=== PATIENT | male | born 1975 | race Caucasian/White ===

== ENCOUNTER 2024-03-02 09:16 | Inpatient (IN) | payer OTHER, SELFPAY ==
[2024-03-02] VITALS (13 sets, daily range): BP systolic 116–166; BP diastolic 80–99; BMI 29.3; BMI 28.9
--- NOTE | 2024-03-02 04:40 | EDRN ---
Pt had flu about 3 weeks ago and since has had a cough. Pt says last 3 days his cough intensified and he is now having chest pressure with coughing. Pt has been taking mucinex for the past 2-3 days. Pt notice a white coating on his tongue and
went to an urgent care 4 days ago and was told he probably has thrush and given a medicine to squirt on his tongue. Pt went to on Saturday, says he was alright during the event but when he got to his room the coughing increased. Pt feels he cannot
take a deep breath. At midnight, pt had a violent coughing fit that caused him to bring up mucus. Pt denies abd pain, nausea, urinary symptoms, fever, weakness.
[2024-03-02] MEDS: DECADRON 10 MG PO (05:15)
[2024-03-02] MEDS: DUONEB 3 ML INH ×2 (05:15→07:44)
--- NOTE | 2024-03-02 05:21 | ED.GENMED ---
History of Present Illness
<JESU Resendiz - Last Filed: 03/02/24 06:30>
General
Chief Complaint: Cough
Source: patient
Exam Limitations: none
Time Seen by Provider: 03/02/24 05:25
Nursing documentation reviewed up to this point in time: agreed with
Travel History
Have you had any contact with someone who has COVID-19?: No
Do you have any symptoms of coronavirus? Fever > 100 degrees, chills, cough, shortness of breath, sore throat, loss of taste or smell, muscle aches, or headache?: No
History of Present Illness
History of Present Illness:
patient is a 48 y/o male with no PMH presenting with a cough x 3-4 weeks. Patient states cough started when he was diagnosed with the flu. Patient was started on Tamiflu, no antibiotics were given. Patient states he has had the cough ever since but
noticed it has worsened in the last 24 hours. Patient states he took Mucinex at home with no relief. Patient admits to chills. Patient admits that his cough induced one episode of nonbilious vomit. Patient admits to SOB since he woke up this
morning. Patient admits to CP that he describes as a pressure. Patient admits to palpitations. Patient lives at home and denies any recent antibiotic use.
Review of Systems
<JESU Resendiz - Last Filed: 03/02/24 06:30>
Review of Systems
Constitutional: Reports chills
EENT: Reports no symptoms
Respiratory: Reports cough and trouble breathing
Cardiac: Reports chest pain and palpitations
ABD/GI: Reports vomiting
: Reports no symptoms
Musculoskeletal: Reports no symptoms
Phy Exam
<JESU Resendiz - Last Filed: 03/02/24 06:30>
General Physical Exam
General Presentation: well appearing and no apparent distress
General Skin: warm and dry
General Habitus: normal
General Mental: alert
General Hydration: appears well hydrated
ENT Exam
ENT Exam: EOMI, pharynx normal, neck supple and normocephalic
Eye Exam
Eye Exam: PERRL, cornea clear and conjunctiva normal
Cardiovascular Exam
Cardiovascular Exam: regular rate/rhythm, no edema, no murmur and normal peripheral pulses
Pulmonary Exam
Pulmonary Exam: other (rhonchi, and coughing noted on exam )
Gastrointestinal Exam
Gastrointestinal Exam: normal bowel sounds, non tender, soft, no organomegaly, no pulsatile mass and non distended
Neurological Exam
Neurological Exam: alert, oriented x3, no motor deficits and speech normal
Musculoskeletal Exam
Musculoskeletal Exam: full ROM and no edema
Skin Exam
Skin Exam: normal color, warm/dry, no rash and no petechia
Psychiatric Exam
Psychiatric Exam: normal mood/affect
Course
<JESU Resendiz - Last Filed: 03/02/24 06:30>
Orders/Labs/Results
Orders:
Orders
03/02/24 04:35
Chest [CR Chest - 2 Views ] Urgent
Comment:
Reason For Exam: hacking cough, sob, chest pressure
03/02/24 05:11
Dexamethasone Pf [Decadron] 10 mg PO NOW STA
Ipratropium/Albuterol Sulfate [Duoneb] 3 ml INH R NOW ONE
03/02/24 05:40
CT Chest Pe Study Urgent
Comment:
Reason For Exam: dyspnea, tachycardia
03/02/24 05:42
Complete Blood Count/With Diff Urgent
Comprehensive Metabolic Panel Urgent
PTT Urgent
Prothrombin Time Urgent
Troponin I Urgent
03/02/24 07:35
Ipratropium/Albuterol Sulfate [Duoneb] 3 ml INH R NOW ONE
03/02/24 07:38
Azithromycin 500 mg/250 ml [Zithromax Infusion] 500 mg in 250 ml IV NOW
CefTRIAXone [Rocephin] 1,000 mg IV NOW STA
Abnormal Lab Results
03/02/24
05:42
WBC 14.6 H 10^3/uL
(4.8-10.8)
RBC 4.49 L 10^6/uL
(4.70-6.10)
Hgb 12.9 L g/dL
(13.0-18.0)
Hct 37.6 L %
(39.0-52.0)
Abs Immat Gran (auto) 0.1 H 10^3/uL
(0-0.05)
Absolute Neuts (auto) 12.0 H 10^3/uL
(1.4-6.5)
Absolute Monos (auto) 1.1 H 10^3/uL
(0.1-0.6)
Neutrophils % 82.5 H %
(42.2-75.2)
Lymphocytes % 8.7 L %
(20.5-51.1)
Glucose 116 H mg/dl
(70-99)
03/02/24 05:42
03/02/24 05:42
Vital Signs
Initial and Last Documented VS:
Initial Vital Signs
Pulse Resp BP Pulse Ox
124 28 166/98 93
03/02/24 03:52 03/02/24 03:52 03/02/24 03:52 03/02/24 03:52
Last Documented Vital Signs
Temp Pulse Resp BP Pulse Ox
98.9 F 119 23 135/86 93
03/02/24 04:30 03/02/24 07:15 03/02/24 07:15 03/02/24 07:00 03/02/24 07:15
<Onel Canales DO - Last Filed: 03/02/24 07:40>
Orders/Labs/Results
Orders:
Orders
03/02/24 04:35
Chest [CR Chest - 2 Views ] Urgent
Comment:
Reason For Exam: hacking cough, sob, chest pressure
03/02/24 05:11
Dexamethasone Pf [Decadron] 10 mg PO NOW STA
Ipratropium/Albuterol Sulfate [Duoneb] 3 ml INH R NOW ONE
03/02/24 05:40
CT Chest Pe Study Urgent
Comment:
Reason For Exam: dyspnea, tachycardia
03/02/24 05:42
Complete Blood Count/With Diff Urgent
Comprehensive Metabolic Panel Urgent
PTT Urgent
Prothrombin Time Urgent
Troponin I Urgent
03/02/24 07:35
Ipratropium/Albuterol Sulfate [Duoneb] 3 ml INH R NOW ONE
03/02/24 07:38
Azithromycin 500 mg/250 ml [Zithromax Infusion] 500 mg in 250 ml IV NOW
CefTRIAXone [Rocephin] 1,000 mg IV NOW STA
Abnormal Lab Results
03/02/24
05:42
WBC 14.6 H 10^3/uL
(4.8-10.8)
RBC 4.49 L 10^6/uL
(4.70-6.10)
Hgb 12.9 L g/dL
(13.0-18.0)
Hct 37.6 L %
(39.0-52.0)
Abs Immat Gran (auto) 0.1 H 10^3/uL
(0-0.05)
Absolute Neuts (auto) 12.0 H 10^3/uL
(1.4-6.5)
Absolute Monos (auto) 1.1 H 10^3/uL
(0.1-0.6)
Neutrophils % 82.5 H %
(42.2-75.2)
Lymphocytes % 8.7 L %
(20.5-51.1)
Glucose 116 H mg/dl
(70-99)
03/02/24 05:42
03/02/24 05:42
Vital Signs
Initial and Last Documented VS:
Initial Vital Signs
Pulse Resp BP Pulse Ox
124 28 166/98 93
03/02/24 03:52 03/02/24 03:52 03/02/24 03:52 03/02/24 03:52
Last Documented Vital Signs
Temp Pulse Resp BP Pulse Ox
98.9 F 119 23 135/86 93
03/02/24 04:30 03/02/24 07:15 03/02/24 07:15 03/02/24 07:00 03/02/24 07:15
<JESU Resendiz - Last Filed: 03/02/24 06:30>
MDM/Problems Addressed
Differential Diagnosis Includes:
PNA
bronchitis
MDM/Problems Addressed:
cough
<JESU Resendiz - Last Filed: 03/02/24 06:30>
*Critical Care Note
Total Time (30-74mins, 75-104mins- exclusive of procedures): Not Applicable
ED Attending Note
<JESU Resendiz - Last Filed: 03/02/24 06:30>
-
Portions of this chart may have been created with voice recognition software.� Occasional wrong word or��sound alike� substitutions may have occurred due to the inherent limitations of voice recognition software.
<Onel Canales DO - Last Filed: 03/02/24 07:40>
ED Attending Note
Patient seen and examined by attending physician: Yes
I performed the substantive portion of visit, reviewed & personally made and approve the management plan that is documented in note by myself or KARINA.: Yes
ED Attending Note:
48-year-old male with a cough for 3 to 4 weeks. He came in tonight because he states the cough worsened in the last 24 hours. He was on Tamiflu after being diagnosed with influenza. He has taken Mucinex with minimal to no relief. He has had
chills and nonbilious vomiting. He awakened with shortness of breath and palpitations. Denies any other symptoms. Patient was seen in conjunction with the PA student. I have reviewed and agree with the history and treatment plan presented. On
my independent physical exam, patient is awake, alert, and oriented x3, nonproductive cough. Wheezing in all lung gonzalez.
14,000 white count.
Discharge Plan
Departure
Patient Disposition: Admit
Date of Disposition: 03/02/24
Time of Disposition: 07:39
Admit to: Telemetry
Presentation/result/management discussed w/ accepting MD/DO: Hospitalist
Condition: Fair
Discharge Problem:
Dyspnea, Pneumonia
Prescriptions:
No Action
Unobtainable
0
Referrals:
Heather Escobar DO [Family Provider] -
Interventions
Interventions:
*Risk Screen - Suicide Last Done: 03/02/24 03:52
*General Assessment Last Done: 03/02/24 04:36
*Neglect/Abuse Screening Last Done: 03/02/24 03:52
ED- Fall Risk Assessment Last Done: 03/02/24 05:49
*ED COVID-19 Vaccine History Last Done: 03/02/24 04:36
ED- Cardiac Assessment Last Done: 03/02/24 04:36
ED- Pulmonary Assessment Last Done: 03/02/24 04:36
Discharge Date and Time
Print Language: CYPRIOT
[2024-03-02 05:52] LABS: % Basophils 0.5 % (0-2); % Eosinophils 0.5 % (0-6); % Immature Granulocytes 0.5 % (0-0.5); % Lymphocytes 8.7 % (20.5-51.1); % Monocytes 7.3 % (1.7-9.3); % Neutrophils 82.5 % (42.2-75.2); Absolute Basophils 0.1 10^3/uL (0-0.2); Absolute Eosinophils 0.1 10^3/uL (0-0.7); Absolute Immature Granulocytes 0.1 10^3/uL (0-0.05); Absolute Lymphocytes 1.3 10^3/uL (1.2-3.4); Absolute Monocytes 1.1 10^3/uL (0.1-0.6); Hematocrit 37.6 % (39.0-52.0); Hemoglobin 12.9 g/dL (13.0-18.0); Mean Corp Hgb Conc. 34.3 g/dL (33.0-37.0); Mean Corpuscular Hgb 28.7 pg (27.0-31.0); Mean Corpuscular Volume 83.7 fL (80.0-94.0); Mean Platelet Volume 9.6 fL (7.4-10.4); Nucleated Red Blood Cells % 0 % (-); Platelet Count 269 10^3/uL (130-400); Red Blood Cell Count 4.49 10^6/uL (4.70-6.10); Red Cell Dist. Width 13.9 % (11.5-14.5); White Blood Cell Count 14.6 10^3/uL (4.8-10.8)
[2024-03-02 06:03] LABS: APTT 26.8 Sec (23.4-35.0); INR 1.01; PT 13.1 Sec (11.4-14.6)
[2024-03-02 06:09] LABS: ALT (SGPT) 28 U/L (0-50); AST (SGOT) 25 U/L (17-59); Albumin 4.1 g/dl (3.5-5.0); Alkaline Phosphatase 105 U/L (38-126); Blood Urea Nitrogen 16 mg/dl (9-20); Calcium 9.2 mg/dl (8.4-10.2); Carbon Dioxide 27 mmol/L (22-30); Chloride 104 mmol/L (98-107); Estimated Creatinine Clearance 95 ml/min; Glucose 116 mg/dl (70-99); Potassium 3.7 mmol/L (3.5-5.1); Sodium 137 mmol/L (135-145); Total Bilirubin 0.5 mg/dl (0.2-1.3); Total Protein 6.8 g/dl (6.3-8.2); eGFR > 60.00
[2024-03-02 06:16] LABS: Troponin I < 0.012 ng/ml
[2024-03-02] MEDS: ROCEPHIN 1000 MG IV (07:44)
[2024-03-02] MEDS: ZITHROMAX INFUSION 250 IV (07:44)
[2024-03-02 08:23] LABS: NT-proBNP 63.8 pg/ml
--- NOTE | 2024-03-02 09:05 | HPS.HSE ---
Family Physician
-
Family Physician: Heather Escobar
Chief Complaint
-
Shortness of breath and cough
History of Present Illness
Patient 48 years old male with no significant past medical history came into hospital with cough and shortness of breath. Patient has been having cough for over 4 weeks and he was recently diagnosed with influenza and finished a course of Tamiflu.
Patient has been persistently having cough which has been worsening with yellow sputum production; patient describes thick sputum, associated with chills. Denies any fevers. He does have associated shortness of breath. He denies any chest pain.
He also has been having nausea and vomiting. No diarrhea. Sick contact his son and also his ex-, he also was at a wedding this weekend. He denies dysuria urgency or frequency or abdominal pain. In the ED, he was noted to be tachycardic
tachypneic with a leukocytosis of 14.6. He had a chest x-ray that shows bilateral opacities in the bases and a CT scan of the chest that shows mild cardiomegaly, mild interstitial alveolar cardiogenic pulmonary edema, multifocal subpleural airspace
consolidation to the basilar segments of both lower lobes and it was reported as either pulmonary edema, subsegmental atelectasis, mild pneumonia, or mild inflammatory pneumonitis. He also had some mild bilateral hilar lymphadenopathy which also
could represent cardiogenic pulmonary edema, inflammatory disease such as sarcoidosis. Troponin normal less than 0.012, proBNP 63.8. He was referred to hospitalist for further evaluation.
Medical History
Past Medical History
Past Medical History: Reports Other (Depression anxiety, recent influenza, seasonal allergies.)
Past Surgical History: Reports None
Social History
Tobacco: Non-smoker
Alcohol: Occasional
Drug: Marijuana
Family History
Family History: Not pertinent
Allergies / Home Medications
Allergies reflects when Allergies were last updated in [facility].
Home Medications with original date entered in [facility]
Allergy/Medication List:
Allergies
Allergy/AdvReac Type Severity Reaction Status Date / Time
cashew nut Allergy Swelling Verified 03/02/24 03:56
pistachio nut Allergy Swelling Verified 03/02/24 03:56
shellfish derived Allergy Nausea / Verified 03/02/24 03:56
Vomiting
Home Medications
acetaminophen 325 mg tablet (Tylenol) 650 mg PO Q4HPRN PRN mild pain 03/02/24
bupropion HCl 150 mg 24 hr tablet, extended release (Wellbutrin XL) 150 mg PO DAILY 03/02/24
levocetirizine 5 mg tablet (Xyzal) 5 mg PO DAILY 03/02/24
nystatin 100,000 unit/mL oral suspension 5 ml PO QID 03/02/24
Review of Systems
-
A 12 point ROS was completed and negative except as noted: Yes
Physical Exam
Vital Signs
Vital Signs
Temp Pulse Resp BP Pulse Ox
98.9 F 120 19 134/92 95
03/02/24 04:30 03/02/24 08:15 03/02/24 08:15 03/02/24 08:06 03/02/24 08:15
Physical exam:
General: Acutely ill. Mild toxic appearance
HEENT: Normocephalic, Atraumatic and Moist Mucous Membranes
Respiratory: Coarse scattered rhonchi; Negative Wheezes, Rales
Cardiac: Regular Rhythm, tachycardic, and S1/S2
GI: Soft, Nontender and Nondistended
Musculoskeletal: No Clubbing, No Cyanosis and No Edema
Neuro: Awake, Alert and Oriented
Psych: Calm
Physical Exam
General: Other
Laboratory Results
-
03/02/24 05:42
03/02/24 05:42
Laboratory Results
PT 13.1 Sec (11.4-14.6) 03/02/24 05:42
INR 1.01 03/02/24 05:42
APTT 26.8 Sec (23.4-35.0) 03/02/24 05:42
Total Bilirubin 0.5 mg/dl (0.2-1.3) 03/02/24 05:42
AST 25 U/L (17-59) 03/02/24 05:42
ALT 28 U/L (0-50) 03/02/24 05:42
Alkaline Phosphatase 105 U/L (38-126) 03/02/24 05:42
Troponin I < 0.012 ng/ml 03/02/24 05:42
Impression/Plan
-
IMPRESSION:
Patient 48 years old male with no significant past medical history came to the hospital cough shortness of breath likely pneumonia. Cannot rule out other inflammatory causes, also less likely but still possible heart failure. Given his acute
presentation he is at increased risk of morbidity and mortality so we will need to be treated in the hospital and monitor closely.
Impression:
Sepsis due to pneumonia with leukocytosis, tachycardia, tachypnea
Community-acquired pneumonia
Leukocytosis
Hyperglycemia
PLAN:
Continue IV antibiotics, Rocephin and azithromycin (QTc acceptable)
Twelve-lead EKG seen and reviewed personally interpreted by myself with sinus tachycardia 112 bpm APCs, and QTc around 442 ms
Normal troponin x 1.
Obtain procalcitonin, CRP, COVID-19 test, influenza
Obtain blood cultures
Obtain sputum cultures
Obtain echocardiogram
Cardiac monitoring
Seen and reviewed chest x-ray
Seen and reviewed CT scan of the chest
DVT prophylaxis, Lovenox 40 mg SQ
CODE STATUS full code
Will give further recommendations based on his clinical course
Total time spent on today's encounter was 75 minutes which included time spent in counseling the patient/family regarding diagnosis and treatment plan as listed above, goals of care, and symptom management. Case was discussed with nursing staff, ER
staff, and care coordinators/case management. All labs and imaging personally reviewed by me. Remainder the time spent in detailed review of previous records, lab data, imaging, and other medical provider documentation.
[2024-03-02 10:06] LABS: COVID-19 Antigen Negative (Negative)
[2024-03-02] MEDS: TESSALON PERLES 200 MG PO ×3 (10:50→20:57)
[2024-03-02] MEDS: WELLBUTRIN XL (24 hour extended release) 150 MG PO (10:51)
[2024-03-02] MEDS: TYLENOL 650 MG PO ×2 (10:51→20:56)
--- NOTE | 2024-03-02 11:40 | PTCARENOTE ---
pt admitted form ed. pt aaox3. states 2/10 pain in chest from coughing. pain med given as ordered. pt has strong dry coughing spasms. on nc2l. breath sounds diminished with scattered rhonchi. Tessalon pearls given as ordered. ekg done showed
st with pac's. pt now down getting echo.
[2024-03-02 11:55] LABS: Procalcitonin 0.18 ng/ml (0.0-0.25)
[2024-03-02] MEDS: LOVENOX 40 MG SC (18:22)
[2024-03-02] MEDS: ZYRTEC 10 MG PO (20:56)
[2024-03-03 03:16] VITALS: BP 120/85
[2024-03-03] MEDS: TESSALON PERLES 200 MG PO ×2 (04:16→21:05)
[2024-03-03] MEDS: TYLENOL 650 MG PO ×2 (04:17→21:06)
[2024-03-03] MEDS: DUONEB 3 ML INH (04:35)
[2024-03-03] MEDS: ROBITUSSIN AC 5 ML PO ×4 (04:53→21:06)
[2024-03-03 05:41] LABS: % Basophils 0.2 % (0-2); % Immature Granulocytes 0.7 % (0-0.5); % Lymphocytes 8.8 % (20.5-51.1); % Monocytes 5.4 % (1.7-9.3); % Neutrophils 84.9 % (42.2-75.2); Absolute Immature Granulocytes 0.1 10^3/uL (0-0.05); Absolute Lymphocytes 1.2 10^3/uL (1.2-3.4); Absolute Monocytes 0.7 10^3/uL (0.1-0.6); Absolute Neutrophils 11.3 10^3/uL (1.4-6.5); Hematocrit 36.9 % (39.0-52.0); Hemoglobin 12.5 g/dL (13.0-18.0); Mean Corp Hgb Conc. 33.9 g/dL (33.0-37.0); Mean Corpuscular Hgb 28.4 pg (27.0-31.0); Mean Corpuscular Volume 83.9 fL (80.0-94.0); Mean Platelet Volume 9.9 fL (7.4-10.4); Nucleated Red Blood Cells % 0 % (-); Platelet Count 308 10^3/uL (130-400); Red Cell Dist. Width 14.2 % (11.5-14.5); White Blood Cell Count 13.3 10^3/uL (4.8-10.8)
[2024-03-03 05:55] LABS: Troponin I < 0.012 ng/ml
[2024-03-03 06:11] LABS: Blood Urea Nitrogen 13 mg/dl (9-20); Calcium 9.8 mg/dl (8.4-10.2); Carbon Dioxide 24 mmol/L (22-30); Chloride 100 mmol/L (98-107); Estimated Creatinine Clearance 107 ml/min; Glucose 139 mg/dl (70-99); Potassium 3.8 mmol/L (3.5-5.1); Sodium 138 mmol/L (135-145); eGFR > 60.00
[2024-03-03 06:30] LABS: TSH 1.45 uIU/ml (0.47-4.68)
[2024-03-03 08:27] VITALS: BP 123/83
[2024-03-03 08:52] LABS: Glycohemoglobin (HgbA1c) 5.5 % (4.0-5.6)
[2024-03-03] MEDS: WELLBUTRIN XL (24 hour extended release) 150 MG PO (08:53)
--- NOTE | 2024-03-03 09:13 | W.PN.HOSP.TC ---
Today's Communication/Plan
-
Continue antibiotics.
Assessment / Plan
Assessment / Plan
Physical exam:
General: Well Developed, Well Nourished and No Apparent Distress
HEENT: Normocephalic, Atraumatic and Moist Mucous Membranes
Respiratory: Clear to Auscultation; Negative Wheezes, Rales or Rhonchi
Cardiac: Regular Rhythm and S1/S2
GI: Soft, Nontender and Nondistended
Musculoskeletal: No Clubbing, No Cyanosis and No Edema
Neuro: Awake, Alert and Oriented
Psych: Calm
A/P:
Impression:
Sepsis due to pneumonia with leukocytosis, tachycardia, tachypnea
Community-acquired pneumonia
Leukocytosis
Hyperglycemia, infection related-hemoglobin A1c 5.5
PLAN:
Continue IV antibiotics, Rocephin and azithromycin (QTc acceptable)
Added guaifenesin with codeine
WBC 14.6--> 13.3
No evidence of heart failure or ischemia-->Normal EKG, normal troponin, normal BNP, normal echocardiogram.
Negative COVID-19 test, influenza
Check strep and Legionella
Mildly elevated procalcitonin
Elevated CRP--> recheck in a.m.
Follow-up blood cultures, negative so far
sputum cultures--> not good quality. Repeat sputum culture today
Seen and reviewed chest x-ray
Seen and reviewed CT scan of the chest
DVT prophylaxis, Lovenox 40 mg SQ
CODE STATUS full code
Anticipated Discharge: 24 - 48 hours
Subjective/Interval History
-
Date of Service: March 03, 2024
Still has some hacking cough but overall better. Less shortness of breath. Afebrile
Objective Data
-
Labs:
Laboratory Results
03/03/24
05:22
WBC 13.3 H
Hgb 12.5 L
Hct 36.9 L
Plt Count 308
Sodium 138
Potassium 3.8
Chloride 100
Carbon Dioxide 24
BUN 13
Creatinine 0.8
Glucose 139 H
Calcium 9.8
Vital Signs:
Vital Signs
Temp Pulse Resp BP Pulse Ox
98.2 F 104 20 123/83 95
03/03/24 08:27 03/03/24 08:27 03/03/24 08:27 03/03/24 08:27 03/03/24 08:27
I&O
03/02/24 03/03/24 03/04/24
06:59 06:59 06:59
Intake Total 1660 / 1660
Output Total 1050 / 1050
Balance 610 / 610
[2024-03-03] MEDS: ZITHROMAX INFUSION 250 IV (09:57)
[2024-03-03] MEDS: ROCEPHIN 1000 MG IV (09:57)
[2024-03-03] MEDS: STERILE WATER FOR INJECTION 10 ML IV (09:57)
--- NOTE | 2024-03-03 10:58 | PTCARENOTE ---
pt aaox3. states no pain . pt on 2l with harsh frequent cough. breath sounds diminished with crackles 1/[address] bilat. cough med given as ordered. reviewed pt condition and plan of care.
[2024-03-03 12:04] VITALS: BP 119/76
--- NOTE | 2024-03-03 14:31 | CM ---
Patient seen bedside.
IA completed.
Patient lives alone in a 2 story home with 1 step to enter.
2 sons in college.
Patient drives and works.
No hx DME or VN.
Not on home oxygen, no Nebs or CPAP.
PCP: Dr Hirsch
Pharmacy: [facility] in [place]
Plan: home no needs.
[2024-03-03] MEDS: LOVENOX 40 MG SC (16:10)
[2024-03-03 16:24] VITALS: BP 122/75
[2024-03-03 19:55] VITALS: BP 125/86
[2024-03-03] MEDS: ZYRTEC 10 MG PO (21:05)
[2024-03-03 23:57] VITALS: BP 117/78
[2024-03-04] VITALS (7 sets, daily range): BP systolic 106–134; BP diastolic 74–89; PULSE 89; O2SAT 98
[2024-03-04] MEDS: TYLENOL 650 MG PO ×2 (05:26→22:39)
[2024-03-04] MEDS: TESSALON PERLES 200 MG PO ×2 (05:26→22:38)
[2024-03-04] MEDS: ROBITUSSIN AC 5 ML PO (05:27)
[2024-03-04] MEDS: DUONEB 3 ML INH (05:33)
--- NOTE | 2024-03-04 06:52 | W.PN.UPDATE ---
Update Note
Progress Note Update
RN notified [employer]IOR [employer]. Patient c/o chest pain after a coughing spill, stated feels like something heavy sitting on the chest. EKG showed NSR, vitals stable. 95% 4L. Neb tx provided by RT, Morphine ordered. Patient prefers Cough meds with Codeine. Troponin
03/02 and 03/03 negative.
RN reports patient feeling much better at present.
No evidence of heart failure or ischemia, Normal EKG, normal troponin, normal BNP, normal echocardiogram.
[2024-03-04 07:22] LABS: % Basophils 0.5 % (0-2); % Eosinophils 1.1 % (0-6); % Immature Granulocytes 0.8 % (0-0.5); % Lymphocytes 29.5 % (20.5-51.1); % Monocytes 7.9 % (1.7-9.3); % Neutrophils 60.2 % (42.2-75.2); Absolute Eosinophils 0.1 10^3/uL (0-0.7); Absolute Immature Granulocytes 0.1 10^3/uL (0-0.05); Absolute Lymphocytes 2.5 10^3/uL (1.2-3.4); Absolute Monocytes 0.7 10^3/uL (0.1-0.6); Absolute Neutrophils 5.1 10^3/uL (1.4-6.5); Hematocrit 37.6 % (39.0-52.0); Hemoglobin 12.3 g/dL (13.0-18.0); Mean Corp Hgb Conc. 32.7 g/dL (33.0-37.0); Mean Corpuscular Hgb 28.4 pg (27.0-31.0); Mean Corpuscular Volume 86.8 fL (80.0-94.0); Mean Platelet Volume 9.8 fL (7.4-10.4); Nucleated Red Blood Cells % 0 % (-); Platelet Count 291 10^3/uL (130-400); Red Blood Cell Count 4.33 10^6/uL (4.70-6.10); Red Cell Dist. Width 14.5 % (11.5-14.5); White Blood Cell Count 8.5 10^3/uL (4.8-10.8)
[2024-03-04] MEDS: ROCEPHIN 1000 MG IV (09:54)
[2024-03-04] MEDS: STERILE WATER FOR INJECTION 10 ML IV (09:54)
[2024-03-04] MEDS: WELLBUTRIN XL (24 hour extended release) 150 MG PO (09:54)
[2024-03-04] MEDS: ZITHROMAX INFUSION 250 IV (09:54)
--- NOTE | 2024-03-04 10:23 | W.PN.HOSP.TC ---
Today's Communication/Plan
-
Continue antibiotics.
Assessment / Plan
Assessment / Plan
Physical exam:
General: Well Developed, Well Nourished and No Apparent Distress
HEENT: Normocephalic, Atraumatic and Moist Mucous Membranes
Respiratory: Clear to Auscultation; Negative Wheezes, Rales or Rhonchi
Cardiac: Regular Rhythm and S1/S2
GI: Soft, Nontender and Nondistended
Musculoskeletal: No Clubbing, No Cyanosis and No Edema
Neuro: Awake, Alert and Oriented
Psych: Calm
A/P:
Impression:
Sepsis due to pneumonia with leukocytosis, tachycardia, tachypnea
Community-acquired pneumonia
Leukocytosis
Hyperglycemia, infection related-hemoglobin A1c 5.5
PLAN:
Continue IV antibiotics, Rocephin and azithromycin (QTc acceptable)
Will repeat a chest x-ray today PA and lateral today
Assess for home oxygen over the next 24 hours
PT eval
Added guaifenesin with codeine and Robitussin
Oxygen as needed
WBC 14.6--> 13.3-->8.5
No evidence of heart failure or ischemia-->Normal EKG, normal troponin, normal BNP, normal echocardiogram.
Negative COVID-19 test, influenza
Check strep and Legionella--> negative as well
Mildly elevated procalcitonin
Elevated CRP--> trending down from 51.3 down to 29.6
Follow-up blood cultures, negative so far
sputum cultures--> not good quality. Repeat sputum culture and no growth
Seen and reviewed chest x-ray
Seen and reviewed CT scan of the chest
DVT prophylaxis, Lovenox 40 mg SQ
CODE STATUS full code
Anticipated Discharge: 24 - 48 hours
Subjective/Interval History
-
Date of Service: March 04, 2024
Patient still has some cough although overall much better. Not much sputum production as before either. Afebrile. Required some oxygen. Weak overall.
Objective Data
-
Labs:
Laboratory Results
03/04/24
07:12
WBC 8.5
Hgb 12.3 L
Hct 37.6 L
Plt Count 291
Vital Signs:
Vital Signs
Temp Pulse Resp BP Pulse Ox
97.9 F 94 20 106/75 95
03/04/24 07:52 03/04/24 07:52 03/04/24 07:52 03/04/24 07:52 03/04/24 07:52
I&O
03/03/24 03/04/24 03/05/24
06:59 06:59 06:59
Intake Total 1660 / 1660 240 / 240
Output Total 1050 / 1050
Balance 610 / 610 240 / 240
[2024-03-04] MEDS: ROBITUSSIN 100 MG PO ×3 (13:43→22:39)
[2024-03-04] MEDS: LOVENOX SC (17:34)
[2024-03-04] MEDS: ZYRTEC 10 MG PO (22:39)
[2024-03-05 03:10] VITALS: BP 126/89
[2024-03-05] MEDS: TESSALON PERLES 200 MG PO (04:37)
[2024-03-05 06:10] LABS: Angiotensin-1-converting Enzym 45 U/L (16-85)
[2024-03-05 07:55] VITALS: BP 126/91
--- NOTE | 2024-03-05 08:09 | W.PN.HOSP.TC ---
Today's Communication/Plan
-
Continue current management. Discharge planning in progress.
Assessment / Plan
Assessment / Plan
Physical exam:
General: Well Developed, Well Nourished and No Apparent Distress
HEENT: Normocephalic, Atraumatic and Moist Mucous Membranes
Respiratory: Clear to Auscultation; Negative Wheezes, Rales or Rhonchi
Cardiac: Regular Rhythm and S1/S2
GI: Soft, Nontender and Nondistended
Musculoskeletal: No Clubbing, No Cyanosis and No Edema
Neuro: Awake, Alert and Oriented
Psych: Calm
A/P:
Impression:
Sepsis due to pneumonia with leukocytosis, tachycardia, tachypnea
Community-acquired pneumonia
Leukocytosis
Hyperglycemia, infection related-hemoglobin A1c 5.5
PLAN:
Continue antibiotics. Changed to oral today.
Seen repeat chest x-ray yesterday but clinically improved today. I was going to have pulmonary to evaluate him but I will ask to see him outpatient.
No need for oxygen
PT eval
Added guaifenesin with codeine and Robitussin
Oxygen as needed
WBC 14.6--> 13.3-->8.5
No evidence of heart failure or ischemia-->Normal EKG, normal troponin, normal BNP, normal echocardiogram.
Negative COVID-19 test, influenza
Check strep and Legionella--> negative as well
Mildly elevated procalcitonin
Elevated CRP--> trending down from 51.3 down to 29.6
Follow-up blood cultures, negative so far
sputum cultures--> not good quality. Repeat sputum culture and no growth
Seen and reviewed chest x-ray
Seen and reviewed CT scan of the chest
DVT prophylaxis, Lovenox 40 mg SQ
CODE STATUS full code
Anticipated Discharge: Today
Subjective/Interval History
-
Date of Service: March 05, 2024
Patient feels better today. Cough is much better today as well. Afebrile
Objective Data
-
Vital Signs:
Vital Signs
Temp Pulse Resp BP Pulse Ox
97.8 F 92 18 126/89 93
03/05/24 03:10 03/05/24 03:10 03/05/24 03:10 03/05/24 03:10 03/05/24 03:10
I&O
03/04/24 03/05/24 03/06/24
06:59 06:59 06:59
Intake Total 240 / 240 1200 / 1200
Output Total 800 / 800
Balance 240 / 240 400 / 400
[2024-03-05] MEDS: ROBITUSSIN 100 MG PO ×2 (08:41→11:59)
[2024-03-05] MEDS: WELLBUTRIN XL (24 hour extended release) 150 MG PO (08:48)
[2024-03-05] MEDS: ZITHROMAX 500 MG PO (08:48)
[2024-03-05] MEDS: STERILE WATER FOR INJECTION 10 ML IV (09:19)
[2024-03-05] MEDS: ROCEPHIN 1000 MG IV (09:19)
[2024-03-05 11:55] VITALS: BP 124/80
--- NOTE | 2024-03-05 13:32 | W.DCSUMMARY ---
Discharge Summary
Discharge Data
Date of Admission: 03/02/24
Date of Discharge: 03/05/24
-
Pending Results: No
Hospital Course
Patient 48 years old male with no significant past medical history except for recent influenza came into the hospital with cough shortness of breath and found to have pneumonia. He was treated with IV antibiotics and was able to be switched to oral
antibiotics upon discharge. His cough was difficult to control but improved over time. Blood cultures were no growth, strep and Legionella test were negative, pertussis IgM antibodies was negative, he had normal troponin, normal EKGs, normal
echocardiogram with normal biventricular size and systolic function without regional wall motion abnormality and no significant valvular disease. His repeat influenza and his COVID-19 were negative. Sputum culture was no helpful. His REJI
inhibitor levels was normal given concerns brought up by radiology of sarcoidosis. His Pro-Moose was mildly elevated and CRP was elevated but is trending down with antibiotics, his CRP was 51 and it went down to 29 upon discharge; also his WBC count
went down from 14.6 down to normal 8.5 close discharge. I discussed with patient that we will have him follow-up with pulmonary as outpatient and he is agreeable with this. I reached out to pulmonary and inform them of the plans. Otherwise,
patient is hemodynamically stable, afebrile, and feeling much improved. He is going to be discharged in stable condition today.
Discharge duration: 35 minutes
Discharge Plan
-
Patient Disposition: Home (Routine Discharge)
Discharge Diagnosis/Procedures: Sepsis due to pneumonia.
Condition: Fair
Diet: Low Cholesterol
Activity: As tolerated
Driving Restrictions: As prior to admission
Blood Work: Please PCP to order CBC, BMP within 1 week
Referrals:
Franci Estrada, DO [Active] - in three to four weeks (pneumonia and abnormal ct scan chest.)
Heather Escobar, DO [Family Provider] - in less than 1 week
Prescriptions:
New
codeine-guaifenesin 10-100 mg/5 mL Liquid
5 ml PO Q4HPRN PRN (Reason: cough) Qty: 120 0RF
benzonatate 100 mg Capsule
200 mg PO TIDPRN PRN (Reason: cough) Qty: 14 0RF
cefdinir 300 mg Capsule
300 mg PO Q12 3 Days Qty: 6 0RF
Continued
nystatin 100,000 unit/mL Suspension
5 ml PO QID
Patient Comments:
patient started on 02/27/24 #120mls
acetaminophen [Tylenol] 325 mg Tablet
650 mg PO Q4HPRN PRN (Reason: mild pain)
bupropion HCl [Wellbutrin XL] 150 mg Tablet Extended Release 24 Hr
150 mg PO DAILY
levocetirizine [Xyzal] 5 mg Tablet
5 mg PO DAILY
Discharge Orders:
Discharge Patient (As Directed); Ordered 03/05/24
Ordered By: Dhaval Hubbard
Discharge Date and Time
Discharge Date/Time: 03/05/24 13:53
Print Language: CITIZEN OF [place]
--- NOTE | 2024-03-05 13:33 | CM ---
MD entered order for discharge.
Spoke with pt in room .
He agrees with dc.
He said he will drive himself home.
Offered VN he declined need.
PLAN Home no needs
[2024-03-06 19:44] LABS: Bordetella Pertussis Ab, IgA 0.6 IV (<=1.1); Bordetella Pertussis Ab, IgM 0.2 IV (<=1.1)
[2024-03-10 10:32] LABS: B. Pertussis, IgG IB FHA Positive; B. Pertussis, IgG IB PT Positive; B. Pertussis, IgG IB PT100 Equivocal
[2024-03-13 17:54] LABS: Bordetella Pertussis Ab, IgG 3.57 IV (<=1.04)
== END 2024-03-05 13:53 | disposition home or self-care (01) | DRG 871 ==
LOC: 4 EAST ACU 09:16
PROVIDERS: ADMITTING PHYSICIAN Hospitalist; EMERGENCY PHYSICIAN Student in an Organized Health Care Education/Training Program; FAMILY PHYSICIAN Family Medicine
DX: A41.9 Sepsis, unspecified organism (principal); J18.9 Pneumonia, unspecified organism; F41.9 Anxiety disorder, unspecified; F32.A Depression, unspecified; J30.2 Other seasonal allergic rhinitis; R73.9 Hyperglycemia, unspecified; Z91.018 Allergy to other foods; Z91.013 Allergy to seafood; Z11.52 Encounter for screening for COVID-19
CPT/HCPCS: 71046; 71275; 80048; 80053; 82164; 83036; 83880; 84145; 84443; 84484; 85025; 85610; 85730; 86140; 86615; 87040; 87070; 87205; 87449; 87502; 87811; 87899; 93005; 93306; 94640; 96365; 96375; 97161; 99285; Q9967

== ENCOUNTER 2024-03-24 21:27 | Inpatient (IN) | payer OTHER, SELFPAY ==
[2024-03-24] VITALS (7 sets, daily range): BP systolic 106–143; BP diastolic 63–99; BMI 29.2
--- NOTE | 2024-03-24 17:22 | ED.GENMED ---
History of Present Illness
<Amy Dow PA-C - Last Filed: 03/25/24 21:30>
General
Chief Complaint: Cough
Source: patient
Exam Limitations: none
Time Seen by Provider: 03/24/24 16:56
Nursing documentation reviewed up to this point in time: agreed with
Travel History
Have you had any contact with someone who has COVID-19?: No
Do you have any symptoms of coronavirus? Fever > 100 degrees, chills, cough, shortness of breath, sore throat, loss of taste or smell, muscle aches, or headache?: No
History of Present Illness
History of Present Illness:
Patient is a 48-year-old male presenting to the emergency department for evaluation of persistent and worsening cough in the setting of recent pneumonia treatment.
Patient was recently discharged on 03/05/24 from after a 3-day admission for pneumonia. During that time he received IV antibiotics and was transitioned to oral cefdinir which he completed the course at home over 2 weeks ago. While cough had
persisted�he endorses an acute worsening 3 days ago. He reports associated fatigue, lack of appetite. Coughing fits have become more frequent and occurring throughout the day rather than at night only. He reports chest tightness and pain with
coughing along with 1 episode of nonbilious vomiting. He does report associated shortness of breath. He denies any hematemesis or hemoptysis. He denies any fever or chills. He denies any lower extremity edema.
Patient has been taking Robitussin with codeine.
Phy Exam
<Amy Dow PA-C - Last Filed: 03/25/24 21:30>
Physical Exam
Physical Exam:
General: Coughing, in mild distress, nontoxic
Vitals: Tachycardic, otherwise vital signs stable, afebrile
HEENT: Atraumatic, normocephalic; protecting airway, uvula midline
Neck: appears supple, trachea midline
CV: Tachycardic, regular rhythm, no evidence of cyanosis
Resp: O2 saturation 97 on room air, mild respiratory distress, some diminished breath sounds bilaterally
Abd: Soft, nontender non-distended
Extremities: No deformities, no evidence of cyanosis or edema, no edema, erythema, tenderness of bilateral calves, DP pulses palpable and equal bilaterally
Neuro: alert and oriented; grossly intact
Psych: Normal affect
Skin: Intact, no rashes
Scores
<Nestor Ferreira MD - Last Filed: 03/26/24 12:33>
Heart Failure Risk
Heart Failure Risk Score: Not Applicable
Course
<Amy Dow PA-C - Last Filed: 03/25/24 21:30>
Orders/Labs/Results
Orders:
Orders
03/24/24 Dinner
Regular
At Your Request: Full Participation
03/24/24 16:25
EKG [Electrocardiogram (*1)] Urgent
Reason for Study: Shortness of Breath
EKG- Treatment ONCE
03/24/24 17:16
Dexamethasone Sod Phosphate [Decadron] 6 mg IV NOW STA
Ipratropium/Albuterol Sulfate [Duoneb] 3 ml INH R NOW STA
03/24/24 17:17
CR Chest - 2 Views Urgent
Comment:
Reason For Exam: cough, shortness of breath; recent pneumonia
03/24/24 17:21
Guaifenesin/Codeine Solution [Robitussin AC] 5 ml PO NOW STA
03/24/24 17:25
Complete Blood Count/With Diff Urgent
Comprehensive Metabolic Panel Urgent
Lactate Level [Lactic Acid] Urgent
Blood Culture Q30M
YONY Source: Blood/Venous
Specimen Description:
03/24/24 17:35
Blood Culture Q30M
YONY Source: Blood/Venous
Specimen Description:
03/24/24 17:56
Benzonatate [Tessalon Perles] 200 mg PO NOW STA
03/24/24 19:05
Add On- LAB Urgent
Tests Added?: procalcitonin
03/24/24 20:57
Admit/Transfer Patient As Directed
Co-Sign Provider:
Level of Care: Inpatient admission
Assign to:: Medical/Surgical
Physician / Group: Haven Elliott
Diagnosis: SIRS, reactive airway disease
Reason for Hospitalization: SIRS, reactive airway disease
Expected length of stay greater than two midnights?: Yes
ELOS- Estimated Length of Stay in days: 3
I certify the patient meets the requirements for IP care: Yes
03/24/24 21:00
Budesonide [Pulmicort] 0.5 mg INH R BID
03/24/24 21:04
Code Status As Directed
Resuscitation Status: Full Code
03/24/24 21:28
COVID-19 Antigen Routine
Source: Nasal Swab
03/24/24 22:00
Guaifenesin/Codeine Solution [Robitussin AC] 10 ml PO HS
03/24/24 22:24
Acetaminophen [Tylenol] 650 mg PO Q4HPRN PRN
Benzonatate [Tessalon Perles] 200 mg PO TID
Bisacodyl [Dulcolax] 10 mg RECTAL [id number] PRN
Docusate W/Senna [Senokot-S] 1 tablet PO BIDPRN PRN
Guaifenesin Solution [Robitussin] 200 mg PO Q4HPRN PRN
Ipratropium/Albuterol Sulfate [Duoneb] 3 ml INH R Q4HPRN PRN
Polyethylene Glycol Powder [Miralax] 17 grams PO DAILYPRN PRN
03/24/24 22:24
PULMONARY CONSULT Routine
Consulting Provider: David Perez
Was physician already notified: Yes
Sputum Culture [Respiratory Culture/Gram Stain] Routine
YONY Source: Sputum
Specimen Description:
Activity As Directed
Activity Level: As Tolerated
Vital Signs As Directed
Frequency: Per unit guidelines
Acapella [Rx Pep / Acapela] [RESP] Routine
DX Deep Vein Thrombosis Video Routine
03/25/24 06:30
Basic Metabolic Panel IN AM
Complete Blood Count/With Diff IN AM
Magnesium IN AM
03/25/24 08:00
Bupropion(24Hr)Extended Releas [WELLBUTRIN XL (24 hour extended release)] 150 mg PO DAILY
Cetirizine HCl [Zyrtec] 10 mg PO DAILY
Dexamethasone Sod Phosphate [Decadron] 4 mg IV Q8H
Ipratropium/Albuterol Sulfate [Duoneb] 3 ml INH R QID
03/25/24 18:00
Enoxaparin Sodium [Lovenox] 40 mg SC QPM
Abnormal Lab Results
03/24/24
17:25
RBC 4.55 L 10^6/uL
(4.70-6.10)
Hct 38.0 L %
(39.0-52.0)
Absolute Neuts (auto) 6.8 H 10^3/uL
(1.4-6.5)
Absolute Monos (auto) 0.9 H 10^3/uL
(0.1-0.6)
Lymphocytes % 18.1 L %
(20.5-51.1)
03/24/24 17:25
03/24/24 17:25
Vital Signs
Initial and Last Documented VS:
Initial Vital Signs
Temp Pulse Resp BP Pulse Ox
98.4 F 101 20 143/99 96
03/24/24 16:19 03/24/24 16:19 03/24/24 16:19 03/24/24 16:19 03/24/24 16:19
Last Documented Vital Signs
Temp Pulse Resp BP Pulse Ox
97.9 F 116 22 127/86 96
03/26/24 07:25 03/26/24 11:11 03/26/24 11:11 03/26/24 07:25 03/26/24 11:11
<Nestor Ferreira MD - Last Filed: 03/26/24 12:33>
Orders/Labs/Results
Orders:
Orders
03/24/24 Dinner
Regular
At Your Request: Full Participation
03/24/24 16:25
EKG [Electrocardiogram (*1)] Urgent
Reason for Study: Shortness of Breath
EKG- Treatment ONCE
03/24/24 17:16
Dexamethasone Sod Phosphate [Decadron] 6 mg IV NOW STA
Ipratropium/Albuterol Sulfate [Duoneb] 3 ml INH R NOW STA
03/24/24 17:17
CR Chest - 2 Views Urgent
Comment:
Reason For Exam: cough, shortness of breath; recent pneumonia
03/24/24 17:21
Guaifenesin/Codeine Solution [Robitussin AC] 5 ml PO NOW STA
03/24/24 17:25
Complete Blood Count/With Diff Urgent
Comprehensive Metabolic Panel Urgent
Lactate Level [Lactic Acid] Urgent
Blood Culture Q30M
YONY Source: Blood/Venous
Specimen Description:
03/24/24 17:35
Blood Culture Q30M
YONY Source: Blood/Venous
Specimen Description:
03/24/24 17:56
Benzonatate [Tessalon Perles] 200 mg PO NOW STA
03/24/24 19:05
Add On- LAB Urgent
Tests Added?: procalcitonin
03/24/24 20:57
Admit/Transfer Patient As Directed
Co-Sign Provider:
Level of Care: Inpatient admission
Assign to:: Medical/Surgical
Physician / Group: Haven Elliott
Diagnosis: SIRS, reactive airway disease
Reason for Hospitalization: SIRS, reactive airway disease
Expected length of stay greater than two midnights?: Yes
ELOS- Estimated Length of Stay in days: 3
I certify the patient meets the requirements for IP care: Yes
03/24/24 21:00
Budesonide [Pulmicort] 0.5 mg INH R BID
03/24/24 21:04
Code Status As Directed
Resuscitation Status: Full Code
03/24/24 21:28
COVID-19 Antigen Routine
Source: Nasal Swab
03/24/24 22:00
Guaifenesin/Codeine Solution [Robitussin AC] 10 ml PO HS
03/24/24 22:24
Acetaminophen [Tylenol] 650 mg PO Q4HPRN PRN
Benzonatate [Tessalon Perles] 200 mg PO TID
Bisacodyl [Dulcolax] 10 mg RECTAL [id number] PRN
Docusate W/Senna [Senokot-S] 1 tablet PO BIDPRN PRN
Guaifenesin Solution [Robitussin] 200 mg PO Q4HPRN PRN
Ipratropium/Albuterol Sulfate [Duoneb] 3 ml INH R Q4HPRN PRN
Polyethylene Glycol Powder [Miralax] 17 grams PO DAILYPRN PRN
03/24/24 22:24
PULMONARY CONSULT Routine
Consulting Provider: David Perez
Was physician already notified: Yes
Sputum Culture [Respiratory Culture/Gram Stain] Routine
YONY Source: Sputum
Specimen Description:
Activity As Directed
Activity Level: As Tolerated
Vital Signs As Directed
Frequency: Per unit guidelines
Acapella [Rx Pep / Acapela] [RESP] Routine
DX Deep Vein Thrombosis Video Routine
03/25/24 06:30
Basic Metabolic Panel IN AM
Complete Blood Count/With Diff IN AM
Magnesium IN AM
03/25/24 08:00
Bupropion(24Hr)Extended Releas [WELLBUTRIN XL (24 hour extended release)] 150 mg PO DAILY
Cetirizine HCl [Zyrtec] 10 mg PO DAILY
Dexamethasone Sod Phosphate [Decadron] 4 mg IV Q8H
Ipratropium/Albuterol Sulfate [Duoneb] 3 ml INH R QID
03/25/24 18:00
Enoxaparin Sodium [Lovenox] 40 mg SC QPM
Abnormal Lab Results
03/24/24
17:25
RBC 4.55 L 10^6/uL
(4.70-6.10)
Hct 38.0 L %
(39.0-52.0)
Absolute Neuts (auto) 6.8 H 10^3/uL
(1.4-6.5)
Absolute Monos (auto) 0.9 H 10^3/uL
(0.1-0.6)
Lymphocytes % 18.1 L %
(20.5-51.1)
03/24/24 17:25
03/24/24 17:25
Vital Signs
Initial and Last Documented VS:
Initial Vital Signs
Temp Pulse Resp BP Pulse Ox
98.4 F 101 20 143/99 96
03/24/24 16:19 03/24/24 16:19 03/24/24 16:19 03/24/24 16:19 03/24/24 16:19
Last Documented Vital Signs
Temp Pulse Resp BP Pulse Ox
97.9 F 116 22 127/86 96
03/26/24 07:25 03/26/24 11:11 03/26/24 11:11 03/26/24 07:25 03/26/24 11:11
<Amy Dow PA-C - Last Filed: 03/25/24 21:30>
MDM/Problems Addressed
Differential Diagnosis Includes:
Not limited to: Persistent pneumonia, reactive airway disease status post pneumonia, PE
MDM/Problems Addressed:
Patient is a 48 year old male presenting for evaluation of worsening cough and dyspnea in setting of recent hospitalization for CAP. Patient is mildly tachycardic and hypertensive on arrival. Exam as above. Somewhat diminished breath sounds
bilaterally with multiple coughing fits with associated spasm leading to significant tachycardia. He does appear to be in mild respiratory distress although is oxygen saturation is 97 on room air. Will give DuoNeb, IV steroid, Robitussin, Tessalon
Perles. Concern for incomplete treated pneumonia versus reactive airway disease s/p improving pneumonia. Labs noted without any clinically significant abnormalities. White count is normal. Lactic acid normal. Procalcitonin and blood cultures
pending. Chest x-ray shows improving pneumonia. Given degree of symptoms�will admit to hospitalist for further evaluation/management. To consider possible antibiotics based on procalcitonin. Discussed with hospitalist.
Chronic conditions affecting care:
Recent pneumonia treatment
Acute Exacerbation and/or Progression of Chronic Illness:
Hypoxia likely related to improving pneumonia
<Amy Dow PA-C - Last Filed: 03/25/24 21:30>
*Radiology
Radiology exam reviewed: preliminary read by ED provider and radiology read reviewed
*Pulse Oximetry
Patient hypoxic: yes (borderline hypoxia ranging between 90-96 on room air)
*EKG
Interpreted by ED Provider?: Yes
EKG Intrepretation Date: 03/24/24
Interpretation: normal
Heart Rate: 101
Rate: tachycardiac
Rhythm: sinus
Ischemia: no ischemia
*Bridge Ironworker Interpretation
Rate: tachycardiac
Interpretation: normal
Heart Rate: 112
Rhythm: sinus
*Critical Care Note
Total Time (30-74mins, 75-104mins- exclusive of procedures): Not Applicable
Data Reviewed
Review of Other/Old Records Reveals: Labs, Records, Radiology Studies, Progress Notes and Discharge Summary
Source: previous hospital records
<Amy Dow PA-C - Last Filed: 03/25/24 21:30>
Patient Management
Discussion with other providers: Hospitalist and Stacker And Sorter Operator (Infectious disease)
Escalation/DeEscalation of care consider admission/obs:
Admission for further management of hypoxia and possible incompletely treated
ED Attending Note
<Amy Dow PA-C - Last Filed: 03/25/24 21:30>
-
Portions of this chart may have been created with voice recognition software.� Occasional wrong word or��sound alike� substitutions may have occurred due to the inherent limitations of voice recognition software.
<Nestor Ferreira MD - Last Filed: 03/26/24 12:33>
ED Attending Note
Patient seen and examined by attending physician: Yes
ED Attending Note:
Patient discharged from the hospital 2 weeks ago after being treated for pneumonia, presents to ED secondary to worsening cough with shortness of breath over the past 3 days. After patient was discharged home, patient completed antibiotics, i.e.
Omnicef, as prescribed. Since then, patient felt as though he was improving, but his symptoms resolved completely, until it worsened 3 days ago. Denies loss of appetite. Denies vomiting or diarrhea. Denies rash. Denies headache. Patient states
that he has had significant coughing spells, which has caused vomiting as well as experiencing difficult time catching his breath. Denies back pain. Denies leg pain or swelling.
Physical Exam
General: moderate respiratory distress, acutely ill. afebrile. tachycardic
Head: nc/at. eomi
Neck: supple. no meningeal signs.
Heart: tachycardic, no murmur. equal radial pulses.
Lungs: moderate respiratory distress. diminished breath sounds bilaterally
Abdomen: normal bowel sounds. not tender.
Neuro: alert and oriented. no focal neurological deficits
Skin: no rash
Psychiatric: well kept. interactive and cooperative
Extremities: no edema. no calf tenderness.
Patient with multiple, significant episodes of coughing spell with spasm noted during observation, causing severe tachycardia and transient hypoxia. History and exam concerning for either incompletely treated pneumonia versus postinfectious airway
symptoms. As patient remains quite symptomatic, patient will be admitted for further evaluation and treatment. Awaiting procalcitonin, prior to administering different IV antibiotics.
Blood culture pending.
Discharge Plan
Departure
Patient Disposition: Admit
Date of Disposition: 03/24/24
Time of Disposition: 19:06
Presentation/result/management discussed w/ accepting MD/DO: Hospitalist
Discharge Problem:
Dyspnea, Hypoxia
Interventions
Interventions:
*Risk Screen - Suicide Last Done: 03/24/24 22:50
*General Assessment Last Done: 03/24/24 17:12
*Neglect/Abuse Screening Last Done: 03/24/24 16:19
ED- Fall Risk Assessment Last Done: 03/24/24 20:40
*ED COVID-19 Vaccine History Last Done: 03/24/24 22:50
*Nursing Disposition Last Done: 03/24/24 22:09
ED- Pulmonary Assessment Last Done: 03/24/24 17:12
Discharge Date and Time
Discharge Date/Time: 03/24/24 22:10
[2024-03-24] MEDS: ROBITUSSIN AC 5 ML PO (17:33)
[2024-03-24] MEDS: DECADRON 6 MG IV (17:34)
[2024-03-24] MEDS: DUONEB 3 ML INH ×2 (17:34→22:51)
[2024-03-24 17:37] LABS: % Basophils 0.6 % (0-2); % Eosinophils 1.9 % (0-6); % Immature Granulocytes 0.3 % (0-0.5); % Lymphocytes 18.1 % (20.5-51.1); % Monocytes 8.8 % (1.7-9.3); % Neutrophils 70.3 % (42.2-75.2); Absolute Basophils 0.1 10^3/uL (0-0.2); Absolute Eosinophils 0.2 10^3/uL (0-0.7); Absolute Lymphocytes 1.8 10^3/uL (1.2-3.4); Absolute Monocytes 0.9 10^3/uL (0.1-0.6); Absolute Neutrophils 6.8 10^3/uL (1.4-6.5); Mean Corp Hgb Conc. 34.2 g/dL (33.0-37.0); Mean Corpuscular Hgb 28.6 pg (27.0-31.0); Mean Corpuscular Volume 83.5 fL (80.0-94.0); Nucleated Red Blood Cells % 0 % (-); Platelet Count 244 10^3/uL (130-400); Red Blood Cell Count 4.55 10^6/uL (4.70-6.10); Red Cell Dist. Width 13.9 % (11.5-14.5); White Blood Cell Count 9.7 10^3/uL (4.8-10.8)
[2024-03-24 17:49] LABS: Lactic Acid 1.7 mmol/L (0.7-2.0)
[2024-03-24 17:50] LABS: ALT (SGPT) 24 U/L (0-50); AST (SGOT) 25 U/L (17-59); Albumin 4.3 g/dl (3.5-5.0); Alkaline Phosphatase 91 U/L (38-126); Blood Urea Nitrogen 13 mg/dl (9-20); Calcium 9.3 mg/dl (8.4-10.2); Carbon Dioxide 24 mmol/L (22-30); Chloride 105 mmol/L (98-107); Glucose 96 mg/dl (70-99); Potassium 3.9 mmol/L (3.5-5.1); Sodium 137 mmol/L (135-145); Total Bilirubin 0.4 mg/dl (0.2-1.3); eGFR > 60.00
[2024-03-24] MEDS: TESSALON PERLES 200 MG PO ×2 (18:03→22:41)
--- NOTE | 2024-03-24 20:20 | HPS.HSE ---
Family Physician
-
Family Physician: Heather Escobar
Chief Complaint
-
cough and shortness of breath
History of Present Illness
Mr. Saad Khan is a 48 yo man with hx Wellbutrin and recent influenza followed by hospitalization 03/02-03/05/24 for CAP discharged on 3 more days of Cefdinir presents to the ER with persistent cough and shortness of breath.
Patient states that since discharge 2 1/2 weeks ago his cough has remained severe at night. Sometimes to the point of vomiting afterwards. Over the past 2-3 days cough has also been persistent during the day bringing him to the ER. Cough was
productive of green sputum a couple of days ago but lately hasn't brought anything up. No new fevers, reports feeling a little flushed now. He reports fatigue since discharge and is napping 2x/day. No chest pain but complains of chest tightness.
He states that maybe the nebulizer he received in the ER helped a little. He has been taking Robitussin ATC. States the only thing that helps him sleep is robittusin with codeine.
He does not smoke or vape, no history of smoking.
He has been eating and drinking OK. No LE swelling. No rash.
He had influenza prior to last hospitalization, has not had recent Covid.
Patient lives alone. His two sons are at college and one is coming home tomorrow.
Medical History
Past Medical History
Past Medical History: Reports Other (Depression anxiety, recent influenza, seasonal allergies.)
Past Surgical History: Reports None
Social History
Tobacco: Non-smoker
Alcohol: Occasional
Drug: Marijuana
Family History
Family History: Not pertinent
Allergies / Home Medications
Allergies reflects when Allergies were last updated in [email or web address].
Home Medications with original date entered in [facility]
Allergy/Medication List:
Allergies
Allergy/AdvReac Type Severity Reaction Status Date / Time
cashew nut Allergy Swelling Verified 03/24/24 16:24
pistachio nut Allergy Swelling Verified 03/24/24 16:24
shellfish derived Allergy Nausea / Verified 03/24/24 16:24
Vomiting
Home Medications
bupropion HCl 150 mg 24 hr tablet, extended release (Wellbutrin XL) 150 mg PO DAILY Mental Health/Anxiety 03/02/24
levocetirizine 5 mg tablet (Xyzal) 5 mg PO DAILY Allergies 03/02/24
dextromethorphan-guaifenesin 10 mg-200 mg/5 mL oral liquid 5 ml PO Q6HPRN PRN cough 03/24/24
Review of Systems
-
History Source: Patient
A 12 point ROS was completed and negative except as noted: Yes
Physical Exam
Vital Signs
Vital Signs
Temp Pulse Resp BP Pulse Ox
98.4 F 107 28 135/98 95
03/24/24 16:19 03/24/24 19:00 03/24/24 19:00 03/24/24 19:39 03/24/24 19:00
Physical Exam
General: Other (conversant with intermittent episodes of significant coughing spell during conversation)
HEENT: PERRLA
Respiratory: Other (no obvious wheezing but inhalation limited 2/2 cough)
Cardiac: S1/S2 and Tachycardia
GI: Soft and Non Tender
Musculoskeletal: No Edema
Skin: Warm and Dry; No Rash
Neuro: AO x 3
Psych: Calm
Laboratory Results
-
03/24/24 17:25
03/24/24 17:25
Laboratory Results
Lactic Acid 1.7 mmol/L (0.7-2.0) 03/24/24 17:25
Total Bilirubin 0.4 mg/dl (0.2-1.3) 03/24/24 17:25
AST 25 U/L (17-59) 03/24/24 17:25
ALT 24 U/L (0-50) 03/24/24 17:25
Alkaline Phosphatase 91 U/L (38-126) 03/24/24 17:25
Data Reviewed
-
Diagnostic Radiology: Report Reviewed by me
Lab Data: Labs Reviewed by me
Impression/Plan
-
Mr. Saad Khan is a 48 yo man with hx Wellbutrin and recent influenza followed by hospitalization 03/02-03/05/24 for CAP discharged on 3 more days of Cefdinir presents to the ER with persistent cough and shortness of breath.
Triage VS: T 98.4, P 101, RR 20, BP 143/99, SpO2 96%
LABS: WBC 9.7, Hg 13, PLT 244, Na 137, K+ 3.9, Cl 105, CO2 24, BUN 13, Cr 0.8, Glucose 96, T. Bili 0.4, AST 25, ALT 24, Alk Phos 91
CXR
IMPRESSION:
Interval improvement in previous bibasilar pneumonia.
No Acute cardiopulmonary process.
Chest CT (from 03/02/24)
IMPRESSION:
1. Mild cardiomegaly.
2. Suspected mild interstitial and alveolar cardiogenic pulmonary edema.
3. Mild amount of multifocal subpleural airspace consolidation throughout the basilar segments of both lower lobes which could be secondary to pulmonary edema, subsegmental atelectasis, mild pneumonia, or a mild inflammatory pneumonitis.
4. Mild bilateral hilar lymphadenopathy which could be secondary to cardiogenic pulmonary edema or an inflammatory disease such as sarcoidosis.
MAR: tessalon pearles, Dexamethasone, Guaifenesin/Codeine, duonebs
Concern for reactive airway disease
SIRS 2/2 above
Cough and Shortness of Breath
Recent treatment community aquired pneumonia
Abnormal chest CT 03/02/24 (see above)
-repeat chest x-ray above with improvement. During last admission patient had negative strep and legionalla testing, neg pertussis IgM ab, normal TTE without valvular disease, repeat influenza and covid negative, REJI levels normal
-admit to med/surg
-will continue IV steroids decadron 4mg q 8 hours
-continue standing duonebs and PRN
-start inhaled corticosteroid
-pulmonary consult
-standing robitussin with codeine at night
-robitussin PRN
-standing tessalon perles
-acapella
-sputum culture ordered although patient stating recently not productive
-recheck covid given worsened sx over past 2 days
Anxiety
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
DVT PPx lovenox subQ
FULL CODE
--- NOTE | 2024-03-24 21:20 | EDRN ---
Spoke w/ respiratory regarding pt.'s ordered Pulmicort. Respiratory to administer.
[2024-03-24] MEDS: ROBITUSSIN AC 10 ML PO (21:29)
[2024-03-24 21:51] LABS: COVID-19 Antigen Negative (Negative)
[2024-03-24] MEDS: PULMICORT INH (22:18)
[2024-03-24] MEDS: TYLENOL 650 MG PO (23:15)
--- NOTE | 2024-03-24 23:20 | PTCARENOTE ---
Patient arrived from the ED via stretcher at approximately 2215. Patient ambulated from stretcher to bed x1 assist - gait steady. Patient AAOx3. VSS as documented. Patient w/ a dry, harsh, frequent cough. Assessment as documented. Patient oriented
to room. Bed in lowest position. Call shah within reach.
[2024-03-25] MEDS: ROBITUSSIN 200 MG PO ×2 (03:12→07:58)
[2024-03-25] MEDS: TYLENOL 650 MG PO (03:16)
[2024-03-25 07:14] LABS: Blood Urea Nitrogen 13 mg/dl (9-20); Carbon Dioxide 20 mmol/L (22-30); Chloride 104 mmol/L (98-107); Estimated Creatinine Clearance 121 ml/min; Glucose 124 mg/dl (70-99); Magnesium 2.2 mg/dl (1.6-2.3); Potassium 4.4 mmol/L (3.5-5.1); Sodium 136 mmol/L (135-145); eGFR > 60.00
--- NOTE | 2024-03-25 07:20 | CON.PUL ---
Consultation
Consultation Request
Date/Time Consultation Requested: 03/25
Date/Time Consultation Performed: 03/25
Reason for Consultation: Cough, abnormal imaging
Medical History
-
History of Present Illness:
History obtained from the chart, also from patient. Patient is a pleasant 48-year-old male with history dates back to approximately 6 weeks ago when he was diagnosed with influenza. Since then he has had significant cough spasms to the point where
he feels he may pass out. He was hospitalized 03/02/2024, discharged 03/05/2024, not seen by pulmonary at that time. He was treated for pneumonia with IV antibiotics, workup was negative at that time. Elevated CRP noted at the time of discharge. He
did have abnormal imaging at that time. Patient was referred to follow-up with pulmonary as outpatient. He did feel initially improved but over the past few days has had significant worsening in shortness of breath. He has chest discomfort with
his cough spasms. Denies any recent fevers, chills. Some mild lower abdominal discomfort, feels he pulled a muscle.
.
PMH: Recent influenza, history of allergic rhinitis
Past Medical History
Past Medical History: None (See above)
Past Surgical History: None (See above)
Social History
Tobacco: Non-smoker
Alcohol: Occasional
Drug: Marijuana (Uses marijuana)
Personal:
Living: With Family
Employment: Employed
Family History
Family History: Other (Family history negative for lung disease, blood clots)
Allergies / Home Medications
Allergies
Allergy/AdvReac Type Severity Reaction Status Date / Time
cashew nut Allergy Swelling Verified 03/24/24 16:24
pistachio nut Allergy Swelling Verified 03/24/24 16:24
shellfish derived Allergy Nausea / Verified 03/24/24 16:24
Vomiting
Home Medications
�Medication �Instructions �Recorded �Confirmed �Last Taken �Type
bupropion HCl 150 mg 24 hr tablet, 150 mg PO DAILY Mental 03/02/24 03/24/2424 History
extended release (Wellbutrin XL) Health/Anxiety
levocetirizine 5 mg tablet (Xyzal) 5 mg PO DAILY Allergies 03/02/24 03/24/24 03/24/24 History
dextromethorphan-guaifenesin 10 5 ml PO Q6HPRN PRN cough 03/24/24 03/24/24 03/24/24 History
mg-200 mg/5 mL oral liquid
Review of Systems
Vitals / Labs / Diagnostic Testing
Vital Signs
Temp Pulse Resp BP Pulse Ox
99.0 F 102 20 130/91 95
03/24/24 22:33 03/24/24 22:55 03/24/24 22:55 03/24/24 22:33 03/24/24 22:55
Lab Data
03/25/24 06:30
Diagnostic Testing:
Physical Exam
-
HEENT: Normocephalic and Anicteric
Cardiovascular: S1/S2, Regular Rhythm, Murmur (n), Rub (n), Peripheral Edema (n) and Calf Tenderness (n)
Respiratory: Wheeze (n), Rales (n), Rhonchi (n) and Non-Labored Respirations
GI: Soft, Non Distended and Tender
Neurology: Awake, Alert and No Motor Deficits
Skin: Good Color
General: Comfortable
Assessment
-
48-year-old male with recent history of influenza 6 weeks ago, recent hospital stay for commune acquired pneumonia status post antibiotic therapy, not seen by pulmonary but was recommended follow-up with pulmonary given abnormal CT imaging,
adenopathy. Now presents with worsening cough and chest discomfort. We are asked to comment on his pulmonary process 03/25/2024
Persistent cough x 6 weeks
Cough presyncope
Subjective dyspnea
Recent community-acquired pneumonia, hospitalized 03/02/2024
Mild interstitial disease
History of rhinitis
Negative home sleep study
Plan/recommendations
At this time, patient with significant cough spasms. Chest exam is clear but effective splinting given his concern for cough.
Chest x-ray suboptimal, but mild patchy infiltrate noted
Reviewed CT chest 03/02/24. Mild patchy basilar infiltrate noted, mild groundglass changes.
Mild right hilar adenopathy noted
Moving forward
continue with treatment for postinfectious airways disease.
Budesonide nebulizer, Decadron
Add GERD therapy
No indication for antibiotics at this time
Patient would benefit from pulmonary outpatient follow-up.
Will follow
[2024-03-25 07:25] VITALS: BP 132/90
[2024-03-25 07:36] LABS: % Basophils 0.2 % (0-2); % Immature Granulocytes 0.4 % (0-0.5); % Lymphocytes 7.3 % (20.5-51.1); % Monocytes 1.5 % (1.7-9.3); % Neutrophils 90.6 % (42.2-75.2); Absolute Immature Granulocytes 0.1 10^3/uL (0-0.05); Absolute Lymphocytes 0.9 10^3/uL (1.2-3.4); Absolute Monocytes 0.2 10^3/uL (0.1-0.6); Absolute Neutrophils 10.9 10^3/uL (1.4-6.5); Hematocrit 39.5 % (39.0-52.0); Hemoglobin 13.2 g/dL (13.0-18.0); Mean Corp Hgb Conc. 33.4 g/dL (33.0-37.0); Mean Corpuscular Hgb 28.5 pg (27.0-31.0); Mean Corpuscular Volume 85.3 fL (80.0-94.0); Mean Platelet Volume 10.4 fL (7.4-10.4); Nucleated Red Blood Cells % 0 % (-); Platelet Count 258 10^3/uL (130-400); Red Blood Cell Count 4.63 10^6/uL (4.70-6.10); Red Cell Dist. Width 13.8 % (11.5-14.5)
[2024-03-25] MEDS: ZYRTEC 10 MG PO (07:57)
[2024-03-25] MEDS: DECADRON 4 MG IV ×2 (07:57→15:44)
[2024-03-25] MEDS: WELLBUTRIN XL (24 hour extended release) 150 MG PO (07:57)
[2024-03-25] MEDS: TESSALON PERLES 200 MG PO ×3 (07:57→21:23)
[2024-03-25] MEDS: DUONEB 3 ML INH ×4 (08:01→19:46)
[2024-03-25] MEDS: PULMICORT 0.5 MG INH ×2 (08:01→19:44)
--- NOTE | 2024-03-25 08:35 | W.PN.HOSP.TC ---
Today's Communication/Plan
-
see plan
Assessment / Plan
Assessment / Plan
48 yo man with hx Wellbutrin and recent influenza followed by hospitalization 03/02-03/05/24 for CAP discharged on 3 more days of Cefdinir presents to the ER with persistent cough and shortness of breath.
Gen: NAD, AAOx3.
Eyes: EOMI, PERRLA, no scleral icterus.
Neck: supple.
CV: RRR, +S1/S2, no m/r/g.
Resp: CTAB, no rales, wheezes, or rhonchi.
Abd: +BS, soft, NT, ND
Skin: No rashes.
Neuro: CN 2-12 intact, non-focal.
Psych: Normal mood and affect.
Chest CT (from 03/02/24):
1. Mild cardiomegaly.
2. Suspected mild interstitial and alveolar cardiogenic pulmonary edema.
3. Mild amount of multifocal subpleural airspace consolidation throughout the basilar segments of both lower lobes which could be secondary to pulmonary edema, subsegmental atelectasis, mild pneumonia, or a mild inflammatory pneumonitis.
4. Mild bilateral hilar lymphadenopathy which could be secondary to cardiogenic pulmonary edema or an inflammatory disease such as sarcoidosis.
CXR: Interval improvement in previous bibasilar pneumonia. No acute cardiopulmonary process.
MAR: tessalon pearles, Dexamethasone, Guaifenesin/Codeine, duonebs
Reactive airway disease:
-SIRS on admission
-presented with cough/SOB
-saturating well on RA
-Recent treatment of CAP
-CXR on admission with improvement.
-During last admission patient had negative strep/legionella testing, neg pertussis IgM ab, normal TTE without valvular disease, repeat influenza and covid negative, REJI levels normal
-COVID NEG on admission
-currently on Decadron 4mg IV Q8H
-continue standing duonebs and PRN
-cont pulmicort
-pulmonary consult
-change robitussin-AC to Q6HPRN
-standing tessalon perles
-acapella
-sputum culture ordered although patient stating recently not productive
Anxiety: cont Wellbutrin
FULL/Lovenox
Anticipated Discharge: Within 24 hours
Subjective/Interval History
-
Date of Service: March 25, 2024
c/o coughing fits, nausea.
Objective Data
-
Labs:
Laboratory Results
03/25/24
06:30
WBC 12.0 H
Hgb 13.2
Hct 39.5
Plt Count 258
Sodium 136
Potassium 4.4
Chloride 104
Carbon Dioxide 20 L
BUN 13
Creatinine 0.7
Glucose 124 H
Calcium 10.0
Vital Signs:
Vital Signs
Temp Pulse Resp BP Pulse Ox
99.0 F 102 20 130/91 95
03/24/24 22:33 03/24/24 22:55 03/24/24 22:55 03/24/24 22:33 03/24/24 22:55
I&O
03/24/24 03/25/24 03/26/24
06:59 06:59 06:59
Intake Total 960 / 960
Balance 960 / 960
[2024-03-25] MEDS: ZOFRAN 4 MG PO ×2 (10:05→18:13)
[2024-03-25] MEDS: ROBITUSSIN AC 10 ML PO ×2 (13:48→21:23)
[2024-03-25 15:15] VITALS: BP 128/85
--- NOTE | 2024-03-25 16:00 | CM ---
Reviewed the chart notes and spoke with the patient at the bedside. CM consult received for Advance Directives. Advanced Directive packet provided to the patient. The patient resides alone in a two story home with one step to enter. The patient
reports no DME/VN/SNF in the past. The patient confirmed his pharmacy of choice is the [facility]. CM continues to be available to patient/family and is monitoring medical plan for needs at discharge.
Plan: Discharge to home when medically stable.
[2024-03-25] MEDS: LOVENOX 40 MG SC (17:05)
[2024-03-25] MEDS: PROTONIX 40 MG PO (21:23)
[2024-03-25 23:25] VITALS: BP 120/83
[2024-03-26] MEDS: DECADRON 4 MG IV ×3 (00:06→15:55)
[2024-03-26] MEDS: DUONEB 3 ML INH ×4 (07:18→19:43)
[2024-03-26] MEDS: PULMICORT 0.5 MG INH ×2 (07:18→19:43)
[2024-03-26 07:25] VITALS: BP 127/86
[2024-03-26] MEDS: PROTONIX 40 MG PO ×2 (08:07→20:39)
[2024-03-26] MEDS: ZYRTEC 10 MG PO (08:07)
[2024-03-26] MEDS: WELLBUTRIN XL (24 hour extended release) 150 MG PO (08:07)
[2024-03-26] MEDS: TESSALON PERLES 200 MG PO ×3 (08:07→22:44)
--- NOTE | 2024-03-26 09:25 | W.PN.PUL3 ---
Today's Communication / Plan
-
Transition to oral prednisone
Case management set up home nebulizer with budesonide
Continue GERD therapy
Disposition efforts
Assessment
-
48-year-old male with recent history of influenza 6 weeks ago, recent hospital stay for commune acquired pneumonia status post antibiotic therapy, not seen by pulmonary but was recommended follow-up with pulmonary given abnormal CT imaging,
adenopathy. Now presents with worsening cough and chest discomfort. We are asked to comment on his pulmonary process 03/25/2024
Persistent cough x 6 weeks
Cough presyncope
Subjective dyspnea
Recent community-acquired pneumonia, hospitalized 03/02/2024
Mild interstitial disease
History of rhinitis
Negative home sleep study
Plan/recommendations
At this time, patient with significant cough spasms. Chest exam is clear but effective splinting given his concern for cough.
Chest x-ray suboptimal, but mild patchy infiltrate noted
Reviewed CT chest 03/02/24. Mild patchy basilar infiltrate noted, mild groundglass changes.
Mild right hilar adenopathy noted
Cough improved about 50% since hospital stay
Moving forward
continue with treatment for postinfectious airways disease.
Budesonide nebulizer, Decadron
Transition to oral prednisone, we'll pursue slow taper. 40 mg a day for 5 days, decrease by 10 mg every 5 days
Continue GERD therapy upon discharge
No indication for antibiotics at this time
Patient would benefit from pulmonary outpatient follow-up.
Disposition appears
Subjective Data
-
Date of Service:
Date of Service: March 26, 2024
Subjective:
Patient has some mild improvement in cough, currently 04/03. Denies chest pain, nausea, hemoptysis.
Objective Data
Data Reviewed
Vital Signs / I&O / Oxygen:
Vital Signs
Temp Pulse Resp BP Pulse Ox
97.9 F 100 18 127/86 93
03/26/24 07:25 03/26/24 07:25 03/26/24 07:25 03/26/24 07:25 03/26/24 07:25
Intake and Output
03/25/24 03/26/24 03/27/24
06:59 06:59 06:59
Intake Total 960 / 960 2059
Balance 960 / 960 2059
SaO2 93
Physical Exam
General: Comfortable
HEENT: Normocephalic and Anicteric
Cardiovascular: S1-S2, Regular Rhythm, Murmur (n) and Rub (n)
Respiratory: Wheeze (n), Crackles (n), Rhonchi (n), Non-Labored Respirations and Other ( poor inspiratory effort with cough spasms)
GI: Soft, Non Distended and Non Tender
Neurology: Awake, Alert and No Motor Deficits
Skin: Jaundice (n), Rash (n) and Bruising (n)
Labs/Micro/Reports
Lab Data
03/25/24 06:30
03/25/24 06:30
Microbiology
03/24/24 17:35 Blood/Venous Blood Culture - Preliminary
No Growth in 24 hours- Final report to follow
03/24/24 17:25 Blood/Venous Blood Culture - Preliminary
No Growth in 24 hours- Final report to follow
--- NOTE | 2024-03-26 10:12 | W.PN.HOSP.TC ---
Today's Communication/Plan
-
see bold
Assessment / Plan
Assessment / Plan
48 yo man with hx Wellbutrin and recent influenza followed by hospitalization 03/02-03/05/24 for CAP discharged on 3 more days of Cefdinir presents to the ER with persistent cough and shortness of breath.
Gen: NAD, AAOx3.
Eyes: EOMI, PERRLA, no scleral icterus.
Neck: supple.
CV: remains RRR, +S1/S2, no m/r/g.
Resp: remains CTAB, no rales, wheezes, or rhonchi.
Abd: remains +BS, soft, NT, ND
Skin: No rashes.
Neuro: CN 2-12 intact, non-focal.
Psych: Normal mood and affect.
Chest CT (from 03/02/24):
1. Mild cardiomegaly.
2. Suspected mild interstitial and alveolar cardiogenic pulmonary edema.
3. Mild amount of multifocal subpleural airspace consolidation throughout the basilar segments of both lower lobes which could be secondary to pulmonary edema, subsegmental atelectasis, mild pneumonia, or a mild inflammatory pneumonitis.
4. Mild bilateral hilar lymphadenopathy which could be secondary to cardiogenic pulmonary edema or an inflammatory disease such as sarcoidosis.
CXR: Interval improvement in previous bibasilar pneumonia. No acute cardiopulmonary process.
Reactive airway disease:
-SIRS on admission
-presented with cough/SOB
-saturating well on RA
-Recent treatment of CAP
-CXR on admission with improvement.
-During last admission patient had negative strep/legionella testing, neg pertussis IgM ab, normal TTE without valvular disease, repeat influenza and covid negative, REJI levels normal
-COVID NEG on admission
-cont Decadron 4mg IV Q8H
-continue standing duonebs and PRN
-cont pulmicort
-pulmonary following
-cont robitussin-AC to Q6HPRN
-standing tessalon perles
-acapella
-sputum culture ordered although patient stating recently not productive
eipagstric numbness and protrusion with coughing:
-Pt reports h/o abdominal wall muscle tear in the past
-check CT A/P with PO contrast
Anxiety: cont Wellbutrin
FULL/Lovenox
Anticipated Discharge: Within 24 hours
Subjective/Interval History
-
Date of Service: March 26, 2024
Coughing has improved. c/o epigastric numbness and protrusion with coughing.
Objective Data
-
Vital Signs:
Vital Signs
Temp Pulse Resp BP Pulse Ox
97.9 F 100 18 127/86 93
03/26/24 07:25 03/26/24 07:25 03/26/24 07:25 03/26/24 07:25 03/26/24 07:25
I&O
03/25/24 03/26/24 03/27/24
06:59 06:59 06:59
Intake Total 960 / 960 2059
Balance 960 / 960 2059
[2024-03-26] MEDS: ROBITUSSIN AC 10 ML PO ×2 (10:56→17:55)
[2024-03-26] MEDS: OMNIPAQUE 50 ML PO (11:21)
--- NOTE | 2024-03-26 14:41 | CM ---
Reviewed the chart notes. Received CM consult for nebulizer. Clinicals and script faxed to [facility]. CM continues to be available to patient/family and is monitoring medical plan for needs at discharge.
Plan: Discharge to home when medically stable.
[2024-03-26 15:20] VITALS: BP 111/72
[2024-03-26] MEDS: TYLENOL 650 MG PO (15:55)
[2024-03-26] MEDS: LOVENOX 40 MG SC (17:43)
[2024-03-26 22:52] VITALS: BP 118/71
[2024-03-27] MEDS: DECADRON 4 MG IV (00:13)
[2024-03-27] MEDS: TYLENOL 650 MG PO ×2 (00:13→07:56)
[2024-03-27] MEDS: ROBITUSSIN AC 10 ML PO ×4 (00:13→21:50)
[2024-03-27 07:24] VITALS: BP 126/90
[2024-03-27] MEDS: DUONEB 3 ML INH ×4 (07:25→20:04)
[2024-03-27] MEDS: PULMICORT 0.5 MG INH ×2 (07:25→20:04)
--- NOTE | 2024-03-27 07:41 | W.PN.HOSP.TC ---
Today's Communication/Plan
-
see bold
Assessment / Plan
Assessment / Plan
48 yo man with hx Wellbutrin and recent influenza followed by hospitalization 03/02-03/05/24 for CAP discharged on 3 more days of Cefdinir presents to the ER with persistent cough and shortness of breath.
Gen: NAD, AAOx3.
Eyes: EOMI, PERRLA, no scleral icterus.
Neck: supple.
CV: continues to remain RRR, +S1/S2, no m/r/g.
Resp: continues to remain CTAB, no rales, wheezes, or rhonchi.
Abd: continues to remain +BS, soft, NT, ND
Skin: No rashes.
Neuro: CN 2-12 intact, non-focal.
Psych: Normal mood and affect.
Chest CT (from 03/02/24):
1. Mild cardiomegaly.
2. Suspected mild interstitial and alveolar cardiogenic pulmonary edema.
3. Mild amount of multifocal subpleural airspace consolidation throughout the basilar segments of both lower lobes which could be secondary to pulmonary edema, subsegmental atelectasis, mild pneumonia, or a mild inflammatory pneumonitis.
4. Mild bilateral hilar lymphadenopathy which could be secondary to cardiogenic pulmonary edema or an inflammatory disease such as sarcoidosis.
CXR: Interval improvement in previous bibasilar pneumonia. No acute cardiopulmonary process.
CT A/P: No definitive acute pathology of the abdomen or pelvis identified. Moderate fecal material throughout the colon. Probable tiny fat-containing umbilical hernia with associated stranding. Stable. Incarceration cannot be excluded. Clinical
correlation recommended.
Reactive airway disease:
-SIRS on admission
-presented with cough/SOB
-saturating well on RA
-Recent treatment of CAP
-CXR on admission with improvement.
-During last admission patient had negative strep/legionella testing, neg pertussis IgM ab, normal TTE without valvular disease, repeat influenza and covid negative, REJI levels normal
-COVID NEG on admission
-was been on Decadron 4mg IV Q8H, transition to prednisone taper
-continue standing duonebs and PRN
-cont pulmicort
-pulmonary following
-cont robitussin-AC Q6HPRN
-standing tessalon perles
-acapella
-sputum culture ordered although patient stating recently not productive
eipagstric numbness and protrusion with coughing:
-Pt reports h/o abdominal wall muscle tear in the past
-CT A/P above, clinically pt without incarceration. lactic acid normal. Pt is extremely concerned and wants this addressed. Will c/s surgery.
Anxiety: cont Wellbutrin
RN updated
FULL/Lovenox
Total time spent on today's encounter was 50 minutes which included time spent in counseling the patient/family regarding diagnosis and treatment plan as listed above, goals of care, and symptom management. Case was discussed with nursing staff,
specialists, and care coordinators/case management. All labs and imaging personally reviewed by me. Remainder the time spent in detailed review of previous records, lab data, imaging, and other medical provider documentation.
Anticipated Discharge: Within 24 hours
Subjective/Interval History
-
Date of Service: March 27, 2024
Pt reports his coughing fits are becoming more 'violent' and that things go 'black' during his coughing fits. He is also very concerned about his CT A/P findings.
Objective Data
-
Vital Signs:
Vital Signs
Temp Pulse Resp BP Pulse Ox
98 F 102 22 126/90 91
03/27/24 07:24 03/27/24 07:29 03/27/24 07:29 03/27/24 07:24 03/27/24 07:29
I&O
03/26/24 03/27/24 03/28/24
06:59 06:59 06:59
Intake Total 2059 240 / 240
Balance 2059 240 / 240
[2024-03-27] MEDS: ZYRTEC 10 MG PO (07:48)
[2024-03-27] MEDS: PROTONIX 40 MG PO ×2 (07:48→20:07)
[2024-03-27] MEDS: TESSALON PERLES 200 MG PO ×3 (07:48→21:50)
[2024-03-27] MEDS: DELTASONE 40 MG PO (07:49)
[2024-03-27] MEDS: WELLBUTRIN XL (24 hour extended release) 150 MG PO (07:49)
--- NOTE | 2024-03-27 09:55 | CON.GS ---
Addendum entered and electronically signed by Adriano Barraza MD 03/27/24 12:23:
I saw and examined the patient independently.
The Graduate Studies Dean's note was reviewed and I agree with the note, assessment and plan except where noted below.
Comment: This is a 48-year-old male admitted for respiratory issues and cough with noted chronic intermittent abdominal pain particularly with coughing. A CT scan was performed which demonstrated a small fat-containing umbilical hernia as well as
diastases recti which was re-demonstrated on exam.
Had a lengthy conversation with the patient regarding the management of diastases recti. In short, he will need to follow-up with plastic surgeon as an outpatient. I did give him a few local surgeons who we will look into. While we do fix
umbilical hernias his is asymptomatic and not his main source of pain. In addition in the setting of a diastases recti there is a high risk for recurrence with umbilical hernia repairs.
No acute surgical intervention warranted at this time.
General surgery will sign off for now, please call with any questions or concerns.
Original Note:
Consultation
-
Date/Time Consultation Requested: 03/27/24 08
Requesting Provider: Juan C
Reason for Consultation: umbical hernia
Medical History
-
Chief Complaint: cough, abdominal bulging
History of Present Illness:
Mr Khan is a 48 yo male with a history of celiac dz and recent flu with ongoing cough who is seen today in evaluation for upper abdominal bulging with cough. He notes some soreness with this and has a heating pack currently applied for symptom
management. He is unable to lie flat without significant coughing with bulging elicited and visualized with cough. He notes that over the last month, it has worsened and he is worried it will continue to do so. He has noticed it occurring during
intercourse as well. There is additionally, a small reducible umbilical hernia present. He denies nausea or vomiting or bowel changes.
Past Medical History
Past Medical History: Psychiatric (depression, anxiety)
Past Surgical History: Orthopedic (right shoulder)
Social History
Tobacco: Non-Smoker
Alcohol: None
Employment: Employed
Family History
Family History: Reviewed & Not Pertinent
Allergies / Home Medications
Allergy/AdvReac Type Severity Reaction Status Date / Time
cashew nut Allergy Swelling Verified 03/24/24 16:24
pistachio nut Allergy Swelling Verified 03/24/24 16:24
shellfish derived Allergy Nausea / Verified 03/24/24 16:24
Vomiting
�Medication �Instructions �Recorded �Confirmed �Type
bupropion HCl 150 mg 24 hr tablet, 150 mg PO DAILY Mental 03/02/24 03/24/24 History
extended release (Wellbutrin XL) Health/Anxiety
levocetirizine 5 mg tablet (Xyzal) 5 mg PO DAILY Allergies 03/02/24 03/24/24 History
dextromethorphan-guaifenesin 10 5 ml PO Q6HPRN PRN cough 03/24/24 03/24/24 History
mg-200 mg/5 mL oral liquid
Review of Systems
-
History Source: Patient
All other systems: Negative unless noted
A 10 point review of systems was completed, and was negative except as per HPI.
Physical Exam
Vital Signs
Temp Pulse Resp BP Pulse Ox
98 F 102 22 126/90 91
03/27/24 07:24 03/27/24 07:29 03/27/24 07:29 03/27/24 07:24 03/27/24 07:29
Body Mass Index (BMI) 29.2
Lab Results
03/25/24 06:30
03/25/24 06:30
WBC 12.0 10^3/uL (4.8-10.8) H 03/25/24 06:30
Hgb 13.2 g/dL (13.0-18.0) 03/25/24 06:30
Hct 39.5 % (39.0-52.0) 03/25/24 06:30
Plt Count 258 10^3/uL (130-400) 03/25/24 06:30
Abs Immat Gran (auto) 0.1 10^3/uL (0-0.05) H 03/25/24 06:30
Neutrophils % 90.6 % (42.2-75.2) H 03/25/24 06:30
Physical Exam
General: Well Developed and No Apparent Distress
HEENT: Normocephalic and Moist Mucous Membranes
Respiratory: Non Labored Respirations
GI: Soft, Non Tender, Non Distended and Other (rectal diastasis present with cough, small reducible umbilical hernia)
Skin: Warm
Neuro: Awake, Alert and AO x 3
Psych: Calm
Data Reviewed
-
CT Scan: Image Personally Visualized and interpreted, Report Reviewed by me, Discussed with Physician and Discussed with Patient
Labs: Labs Reviewed by me, Discussed with Physician, Discussed with Nurse and Discussed with Patient
Old Records: Reviewed
Assessment / Plan
-
48 yo male with h/o celiac disease and recent flu with admission for SOB and ongoing cough with rectal diastasis present. On CT there is a small fat containing UH as well which is soft/reducible. No associated GI symptoms. Discomfort with coughing.
--No emergent operative intervention warranted/planned
--Discussed outpatient follow up with plastic surgery to discuss repair
--- NOTE | 2024-03-27 10:13 | W.PN.PUL3 ---
Today's Communication / Plan
-
Transition to oral prednisone
Will add Singulair
Continue GERD therapy
Continue antitussive therapy
Hope for discharge
Disposition efforts
Assessment
-
48-year-old male with recent history of influenza 6 weeks ago, recent hospital stay for commune acquired pneumonia status post antibiotic therapy, not seen by pulmonary but was recommended follow-up with pulmonary given abnormal CT imaging,
adenopathy. Now presents with worsening cough and chest discomfort. We are asked to comment on his pulmonary process 03/25/2024
Persistent cough x 6 weeks
Cough presyncope
Subjective dyspnea
Recent community-acquired pneumonia, hospitalized 03/02/2024
Mild interstitial disease
History of rhinitis
Negative home sleep study
Plan/recommendations
At this time, patient with significant cough spasms. Chest exam is clear but effective splinting given his concern for cough.
Chest x-ray suboptimal, but mild patchy infiltrate noted
Reviewed CT chest 03/02/24. Mild patchy basilar infiltrate noted, mild groundglass changes.
Mild right hilar adenopathy noted
Cough improved about 50% since hospital stay
Still with cough spasms with patient able to speak more continuously and speak loudly with less coughing
Moving forward
continue with treatment for postinfectious airways disease.
Budesonide nebulizer, would like to set up home nebulizer
Transition to oral prednisone, we'll pursue slow taper. 40 mg a day for 5 days, decrease by 10 mg every 5 days
Continue GERD therapy upon discharge
No indication for antibiotics at this time
Will add Singulair. Reviewed that this may take some time to have an effect
Patient would benefit from pulmonary outpatient follow-up.
Disposition appears
Subjective Data
-
Date of Service:
Date of Service: March 27, 2024
Subjective:
Patient is complaining of more fatigue today. Still have a cough although cough is more dry. He appears to be speaking more forcefully without cough spasms although still with occasional cough spasms. Abdominal pain continues. Friend at bedside
Objective Data
Data Reviewed
Vital Signs / I&O / Oxygen:
Vital Signs
Temp Pulse Resp BP Pulse Ox
98 F 102 22 126/90 91
03/27/24 07:24 03/27/24 07:29 03/27/24 07:29 03/27/24 07:24 03/27/24 07:29
Intake and Output
03/26/24 03/27/24 03/28/24
06:59 06:59 06:59
Intake Total 2059 240 / 240
Balance 2059 240 / 240
SaO2 91
Physical Exam
General: Comfortable
HEENT: Normocephalic and Anicteric
Cardiovascular: S1-S2, Regular Rhythm, Murmur (n) and Rub (n)
Respiratory: Wheeze (n), Crackles (n), Rhonchi (n), Non-Labored Respirations and Other ( poor inspiratory effort with cough spasms)
GI: Soft, Non Distended and Non Tender
Neurology: Awake, Alert and No Motor Deficits
Skin: Jaundice (n), Rash (n) and Bruising (n)
Labs/Micro/Reports
Lab Data
03/25/24 06:30
03/25/24 06:30
Microbiology
03/24/24 17:35 Blood/Venous Blood Culture - Preliminary
No Growth in 48 hours- Final report to follow
03/24/24 17:25 Blood/Venous Blood Culture - Preliminary
No Growth in 48 hours- Final report to follow
--- NOTE | 2024-03-27 10:50 | CM ---
Reviewed the chart notes and spoke with the patient at the bedside. Per patient, [facility] will be delivering the nebulizer today. Patient's son at home to receive. The patient anticipates being discharged to home possibly tomorrow. No further
needs anticipated. CM continues to be available to patient/family and is monitoring medical plan for needs at discharge.
Plan: Discharge to home when medically stable.
[2024-03-27 15:07] VITALS: BP 114/83
[2024-03-27] MEDS: SINGULAIR 10 MG PO (17:16)
[2024-03-27] MEDS: LOVENOX 40 MG SC (17:17)
[2024-03-27 23:53] VITALS: BP 120/82
[2024-03-28 07:20] VITALS: BP 118/80
[2024-03-28] MEDS: PULMICORT 0.5 MG INH (07:45)
[2024-03-28] MEDS: DUONEB 3 ML INH ×3 (07:45→14:41)
[2024-03-28] MEDS: TESSALON PERLES 200 MG PO ×2 (08:06→17:05)
[2024-03-28] MEDS: PROTONIX 40 MG PO (08:06)
[2024-03-28] MEDS: DELTASONE 40 MG PO (08:06)
[2024-03-28] MEDS: WELLBUTRIN XL (24 hour extended release) 150 MG PO (08:06)
[2024-03-28] MEDS: ZYRTEC 10 MG PO (08:07)
--- NOTE | 2024-03-28 09:24 | W.PN.HOSP.TC ---
Addendum entered and electronically signed by Tj Martinez MD 03/28/24 15:40:
Discussed with pulmonary regarding the plan
Patient's pharmacy does not have Robitussin with codeine therefore printed a general prescription for go Fenesin with codeine so patient can take to any pharmacy. If potassium level is okay we will discharge the patient today.
D/W RN
Total discharge time 34 min
Original Note:
Today's Communication/Plan
-
Pulse Ox with exertion
? Discharge today
Assessment / Plan
Assessment / Plan
48 yo man with hx Wellbutrin and recent influenza followed by hospitalization 03/02-03/05/24 for CAP discharged on 3 more days of Cefdinir presents to the ER with persistent cough and shortness of breath.
Chest CT (from 03/02/24):
1. Mild cardiomegaly.
2. Suspected mild interstitial and alveolar cardiogenic pulmonary edema.
3. Mild amount of multifocal subpleural airspace consolidation throughout the basilar segments of both lower lobes which could be secondary to pulmonary edema, subsegmental atelectasis, mild pneumonia, or a mild inflammatory pneumonitis.
4. Mild bilateral hilar lymphadenopathy which could be secondary to cardiogenic pulmonary edema or an inflammatory disease such as sarcoidosis.
CXR: Interval improvement in previous bibasilar pneumonia. No acute cardiopulmonary process.
CT A/P: No definitive acute pathology of the abdomen or pelvis identified. Moderate fecal material throughout the colon. Probable tiny fat-containing umbilical hernia with associated stranding. Stable. Incarceration cannot be excluded. Clinical
correlation recommended.
ECH[facility] 03/02/24-Normal biventricular size and systolic function without regional wall motion abnormality. No significant valvular disease. No significant change since the prior study of 09/09/14.
CVS: S1-S2 normal
Chest: CTA B/L, No Wheezes
Abdomen: Soft, NT / Bowel sounds present
Extremities: No edema, normal pulses
RX SPECIALIST: Non focal exam
#Reactive airway disease:
-SIRS on admission
-Presented with cough/SOB
-Saturating well on RA
-Recent treatment of CAP
-CXR on admission with improvement.
-During last admission patient had negative strep/legionella testing, neg pertussis IgM ab, normal TTE without valvular disease, repeat influenza and covid negative, REJI levels normal
-COVID NEG on admission
-was on Decadron 4mg IV Q8H, transitioned to prednisone taper
-continue duonebs -Will give a script for Nebulizer
-cont Pulmicort
-Continue H1 lisa
-pulmonary following
-cont Robitussin-AC Q6HPRN
-standing Tessalon Perles
-acapella
-sputum culture ordered although patient stating recently not productive
-Patient is aware that cough is the last thing to go away.
-He also realizes that he has seasonal allergies. Methods to reduce seasonal allergy discussed with the patient in detail.
#Epigastric numbness and protrusion with coughing:
-Pt reports h/o abdominal wall muscle tear in the past
-CT A/P above, clinically pt without incarceration. lactic acid normal. Pt is extremely concerned and wanted this addressed.
-Surgical consultation appreciated. Recommended that patient follow-up with plastic surgery as outpatient
#Anxiety: cont Wellbutrin
#FULL CODE
#DVT prophylaxis-Lovenox
RN updated
D/W Case management
Script for Nebulizer and Pulse Ox written
Anticipated Discharge: Today
Subjective/Interval History
-
Date of Service: March 28, 2024
Objective Data
-
Labs:
Laboratory Results
03/28/24
08:52
Sodium Pending
Potassium Pending
Chloride Pending
Carbon Dioxide Pending
BUN Pending
Creatinine Pending
Glucose Pending
Calcium Pending
Vital Signs:
Vital Signs
Temp Pulse Resp BP Pulse Ox
97.8 F 103 18 118/80 97
03/28/24 07:20 03/28/24 07:50 03/28/24 07:50 03/28/24 07:20 03/28/24 07:50
I&O
03/27/24 03/28/24 03/29/24
06:59 06:59 06:59
Intake Total 240 / 240 1690 / 1690
Balance 240 / 240 1690 / 1690
[2024-03-28 09:49] LABS: Blood Urea Nitrogen 16 mg/dl (9-20); Calcium 9.2 mg/dl (8.4-10.2); Carbon Dioxide 24 mmol/L (22-30); Chloride 105 mmol/L (98-107); Estimated Creatinine Clearance 106 ml/min; Glucose 89 mg/dl (70-99); Potassium 3.2 mmol/L (3.5-5.1); Sodium 135 mmol/L (135-145); eGFR > 60.00
[2024-03-28] MEDS: KCL 40 MEQ PO (11:49)
[2024-03-28 12:08] LABS: Magnesium 2.4 mg/dl (1.6-2.3)
[2024-03-28 15:20] VITALS: BP 124/85
--- NOTE | 2024-03-28 15:36 | CM ---
CM following re: discharge planning.
Reviewed pt's chart, met with pt.
According to MD pt will be ready for discharge today. pt is aware, expressed his agreement with discharge and he stated his car is parked on the parking lot and he will drive home.
Pt stated he received a nebulizer machine yesterday and pt is aware he will get a script for oximeter. Pt stated he will get it from the pharmacy.
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
D/C plan: home no needs. Will drive home.
[2024-03-28 15:48] LABS: Potassium 4.2 mmol/L (3.5-5.1)
--- NOTE | 2024-03-28 16:15 | W.DS.TRANS ---
Addendum entered and electronically signed by Tj Martinez MD 03/29/24 07:28:
Dictation- [id number]
Original Note:
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
-
Discharge Instructions:
Discharge Diagnosis/Procedures Persistent cough, reactive airway disease,
anxiety, seasonal allergies
Diet As tolerated
Activity As tolerated
Driving Restrictions As prior to admission
Blood Work bmp 4 days
Instructions:
Stand-Alone Forms:
Changes to Home Medications: Yes
Discharge Medications:
DC Medications w/original date entered in [facility]
bupropion HCl 150 mg 24 hr tablet, extended release (Wellbutrin XL) 150 mg PO DAILY Mental Health/Anxiety 03/02/24
levocetirizine 5 mg tablet (Xyzal) 5 mg PO DAILY Allergies 03/02/24
benzonatate 100 mg capsule 200 mg (2 x 100 mg) PO TID Lung/breathing issues #60 caps 03/28/24
budesonide 0.5 mg/2 mL suspension for nebulization 0.5 mg (2 mL) inhalation R BID Lung/breathing issues #60 mL 03/28/24
codeine 10 mg-guaifenesin 200 mg/5 mL oral liquid 5 ml PO ONCE Cough #473 mL 03/28/24
ipratropium 0.5 mg-albuterol 3 mg (2.5 mg base)/3 mL nebulization soln 3 ml inhalation R Q4HPRN PRN wheezing #90 mL 03/28/24
montelukast 10 mg tablet 10 mg PO QPM Lung/breathing issues #30 tabs 03/28/24
pantoprazole 40 mg tablet,delayed release 40 mg PO BID Gastrointestinal issue #90 tabs 03/28/24
prednisone 10 mg tablet See Rx Instructions .Route .COMPLEX Lung/breathing issues #42 tabs 03/28/24
Home Medication Changes
new
budesonide 0.5 mg/2 mL suspension for nebulization 0.5 mg (2 mL) inhalation R BID Lung/breathing issues #60 mL 03/28/24
codeine 10 mg-guaifenesin 200 mg/5 mL oral liquid 5 ml PO ONCE Cough #473 mL 03/28/24
ipratropium 0.5 mg-albuterol 3 mg (2.5 mg base)/3 mL nebulization soln 3 ml inhalation R Q4HPRN PRN wheezing #90 mL 03/28/24
montelukast 10 mg tablet 10 mg PO QPM Lung/breathing issues #30 tabs 03/28/24
pantoprazole 40 mg tablet,delayed release 40 mg PO BID Gastrointestinal issue #90 tabs 03/28/24
prednisone 10 mg tablet See Rx Instructions .Route .COMPLEX Lung/breathing issues #42 tabs 03/28/24
Pending Results: No
== END 2024-03-28 17:46 | disposition home or self-care (01) | DRG 202 ==
LOC: 2 NORTH 21:27
PROVIDERS: Physician Assistant; ADMITTING PHYSICIAN Student in an Organized Health Care Education/Training Program; ATTENDING PHYSICIAN Hospitalist; EMERGENCY PHYSICIAN Emergency Medicine; FAMILY PHYSICIAN Family Medicine; OTHER PHYSICIAN Internal Medicine Critical Care Medicine; OTHER PHYSICIAN Surgery
DX: J45.909 Unspecified asthma, uncomplicated (principal); R65.10 Systemic inflammatory response syndrome (SIRS) of non-infectious origin without acute organ dysfunction; R05.9 Cough, unspecified; R09.02 Hypoxemia; F41.9 Anxiety disorder, unspecified; K42.9 Umbilical hernia without obstruction or gangrene; K90.0 Celiac disease; F32.A Depression, unspecified; R59.0 Localized enlarged lymph nodes; Z87.01 Personal history of pneumonia (recurrent); Z11.52 Encounter for screening for COVID-19; Z91.018 Allergy to other foods; Z91.013 Allergy to seafood
CPT/HCPCS: 71046; 74176; 80048; 80053; 83605; 83735; 84132; 85025; 87040; 87811; 93005; 94640; 96374; 99285

== ENCOUNTER → 2024-06-12 09:00 | Outpatient (REF) | payer OTHER, SELFPAY | LOC: DHSLP 09:00 | PROVIDERS: ATTENDING PHYSICIAN Internal Medicine | DX: G47.33 Obstructive sleep apnea (adult) (pediatric) (principal) | CPT/HCPCS: 95800 ==

== ENCOUNTER → 2025-09-07 17:00 | Outpatient (REF) | payer OTHER, SELFPAY | LOC: RAD 17:00 | PROVIDERS: ATTENDING PHYSICIAN Student in an Organized Health Care Education/Training Program; FAMILY PHYSICIAN Family Medicine | DX: R05.3 Chronic cough (principal); Z87.01 Personal history of pneumonia (recurrent); R59.0 Localized enlarged lymph nodes; G47.33 Obstructive sleep apnea (adult) (pediatric) | CPT/HCPCS: 71260; Q9967 ==